=== PATIENT | female | born 1950 | race Caucasian/White ===

== ENCOUNTER 2020-02-05 11:23 | Emergency (ER) | payer MEDICARE, BC ==
--- NOTE | 2020-02-05 11:47 | EDM.PDOC ---
ED HPI GENERAL MEDICAL PROBLEM - General Chief Complaint: Syncope Stated Complaint: HEART ISSUES Time Seen by Provider: 02/05/20 11:35 Source of Information: Reports: Patient, EMS, Old Records History Limitations: Reports: No Limitations - History of Present Illness INITIAL COMMENTS - FREE TEXT/NARRATIVE: 69 yo female is here after a syncopal spell at home that occurred while standing in her laundry room. She has been feeling like she might pass out often for about a month associated always with standing. Normally she can quick sit or lie down and feel better. Today there was no where to sit and she passed out. Feels fine now. Arrives via EMS. No recent black or bloody stools, vomiting or diarrhea. No fever or chest pain. No injury from her fall today. EMS noted a low BP when they first arrived on scene. Patient had her diuretic dose increased somewhat recently, and it is being dropped back from 40 mg to 20 mg daily starting today. Onset: Today Onset Date: 02/05/20 Duration: Minutes:, Resolved Prior to Arrival Location: Reports: Generalized Quality: Reports: Other (no pain) Severity: Moderate Improves with: Reports: Other (lying/sitting) Worsens with: Reports: Other (standing) Context: Reports: Other (See HPI) Associated Symptoms: Reports: Syncope Treatments IN STORE REPRESENTATIVE: Reports: Other (see below) (none) - Related Data Allergies Allergy/AdvReac Type Severity Reaction Status Date / Time cephalexin [Cephalexin] Allergy Cannot Verified 02/05/20 11:26 Remember Cephalosporins Allergy Cannot Verified 02/05/20 11:26 Remember Corticosteroids Allergy Cannot Verified 02/05/20 11:26 (Glucocorticoids) Remember paclitaxel Allergy Cannot Verified 02/05/20 11:26 Remember Home Meds: Home Meds *[place] 3-6-9 1 tab PO DAILY 08/07/13 [History] *Vitamin B-12 2,000 mcg PO DAILY 08/07/13 [History] *Vitamin D3 2,000 units PO DAILY 08/07/13 [History] *Women's Multivitamin 1 tab PO DAILY 08/07/13 [History] Furosemide [Lasix] 20 mg PO DAILY 08/07/13 [History] Lisinopril 5 mg PO DAILY 08/07/13 [History] Metoprolol Tartrate 50 mg PO BID 08/07/13 [History] Simvastatin [Zocor] 5 mg PO BEDTIME 08/07/13 [History] Insulin Aspart [NovoLOG] 0 unit SUBCUT ASDIRECTED 08/13/15 [History] Nortriptyline 50 mg PO DAILY 02/05/20 [History] Past Medical History Cardiovascular History: Reports: CAD, [place], Stents Respiratory History: Reports: Other (See Below) Other Respiratory History: had reaction to chem on had dyspnea Gastrointestinal History: Reports: None Genitourinary History: Reports: None 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: Psychiatric History: Reports: Depression Endocrine/Metabolic History: Reports: Diabetes, Type II Type of Insulin Used in Pump: novolog Who Manages Your Pump: Patient (Self) Who Medically Manages Your Pump (Provider): Gisell Nielson Oncologic (Cancer) History: Reports: Breast, Colon - Infectious Disease History Infectious Disease History: Reports: Chicken Pox, Measles - Past Surgical History HEENT Surgical History: Reports: Eye Surgery, Other (See Below) Other HEENT Surgeries/Procedures: nasal polypectomy Cardiovascular Surgical History: Reports: Coronary Artery Stent GI Surgical History: Reports: Appendectomy, Cholecystectomy, Colon Female Surgical History: Reports: Hysterectomy Oncologic Surgical History: Reports: Mastectomy Social & Family History - Tobacco Use Smoking Status *Q: Never Smoker - Recreational Drug Use Recreational Drug Use: No - Living Situation & Occupation Living situation: Reports: , with Spouse ED ROS GENERAL - Review of Systems Review Of Systems: See Below Constitutional: Reports: No Symptoms HEENT: Reports: No Symptoms Respiratory: Reports: No Symptoms Cardiovascular: Reports: Syncope Endocrine: Reports: No Symptoms GI/Abdominal: Reports: Decreased Appetite : Reports: No Symptoms Musculoskeletal: Reports: No Symptoms Skin: Reports: No Symptoms Neurological: Reports: No Symptoms Psychiatric: Reports: No Symptoms - Physical Exam Exam: See Below Exam Limited By: No Limitations General Appearance: Alert, WD/WN, No Apparent Distress Eye Exam: Bilateral Eye: Normal Inspection, PERRL Ears: Normal External Exam, Normal Canal, Hearing Grossly Normal Nose: Normal Inspection, No Blood Throat/Mouth: Normal Inspection, Normal Lips, Normal Oropharynx, Normal Voice, No Airway Compromise, Other (dry oral mucosa) Head Exam: Atraumatic, Normocephalic Neck: Normal Inspection Respiratory/Chest: No Respiratory Distress, Lungs Clear, Normal Breath Sounds, No Accessory Muscle Use Cardiovascular: Regular Rate, Rhythm. No: No Edema GI/Abdominal: Normal Bowel Sounds, Soft, Non-Tender, No Distention Neuro Exam (Abbreviated): Alert, Oriented, CN II-XII Intact, Normal Cognition, No Motor/Sensory Deficits Back Exam: Normal Inspection. No: CVA Tenderness (R), CVA Tenderness (L) Extremities: Normal Inspection, Normal Range of Motion, Non-Tender, Pedal Edema (Trace pitting edema of both shins/ankles). No: No Pedal Edema Psychiatric: Normal Affect, Normal Mood Skin Exam: Warm, Dry, Intact, Normal Color, No Rash Course - Vital Signs Last Recorded V/S: Last Vital Signs Temp 36.6 C 02/05/20 11:36 Pulse 77 02/05/20 12:30 Resp 14 02/05/20 15:30 BP 128/61 02/05/20 15:30 Pulse Ox 99 02/05/20 15:30 Orthostatic Blood Pressure [ 81/43 Standing] Orthostatic Blood Pressure [ 129/63 Supine] Orthostatic Blood Pressure [ 109/55 Sitting] - Orders/Labs/Meds Orders: Active Orders 24 hr Category Date Time Status Cardiac Monitoring [RC] .As Directed Care 02/05/20 11:27 Active Orthostatic Vital Signs [RC] ASDIRECTED Care 02/05/20 11:27 Active Orthostatic Vital Signs [RC] ASDIRECTED Care 02/05/20 14:33 Active CULTURE URINE [RM] Stat Lab 02/05/20 12:35 Received Hemoccult [OCCULT BLOOD DIAGNOSTIC] [OP] Stat Lab 02/05/20 11:59 Ordered Labs: Laboratory Tests 02/05/20 02/05/20 02/05/20 Range/Units 11:37 11:37 12:07 WBC 4.5 (4.5-11.0) K/uL RBC 3.29 L (3.30-5.50) M/uL Hgb 10.5 L (12.0-15.0) g/dL Hct 32.2 L (36.0-48.0) % MCV 98 (80-98) fL MCH 32 H (27-31) pg MCHC 33 (32-36) % Plt Count 114 L (150-400) K/uL Sodium 138 L (140-148) mmol/L Potassium 4.0 (3.6-5.2) mmol/L Chloride 100 (100-108) mmol/L Carbon Dioxide 30 (21-32) mmol/L Anion Gap 12.0 (5.0-14.0) mmol/L BUN 26 H (7-18) mg/dL Creatinine 2.0 H (0.6-1.0) mg/dL Est Cr Clr Drug Dosing 23.22 mL/min Estimated GFR (MDRD) 25 L (>60) Glucose 259 H (74-106) mg/dL Calcium 9.7 (8.5-10.1) mg/dL Troponin I < 0.017 (0.000-0.056) ng/mL Urine Color Yellow (YELLOW) Urine Appearance Slightly cloudy A (CLEAR) Urine pH 6.0 (5.0-8.0) Ur Specific [place] 1.020 (1.008-1.030) Urine Protein Negative (NEGATIVE) mg/dL Urine Glucose (UA) 500 H (NEGATIVE) mg/dL Urine Ketones Negative (NEGATIVE) mg/dL Urine Occult Blood Negative (NEGATIVE) Urine Nitrite Negative (NEGATIVE) Urine Bilirubin Negative (NEGATIVE) Urine Urobilinogen 0.2 (0.2-1.0) EU/dL Ur Leukocyte Esterase Small H (NEGATIVE) Urine RBC 0-5 (0-5) Urine WBC 10-20 H (0-5) Ur Epithelial Cells Moderate Amorphous Sediment Moderate Urine Bacteria Moderate Urine Mucus Few Meds: Medications Discontinued Medications Generic Name Dose Route Start Last Admin Trade Name Freq PRN Reason Stop Dose Admin Sodium Chloride 1,000 mls @ 1,000 mls/hr 02/05/20 12:06 02/05/20 12:14 Normal Saline IV 02/05/20 13:05 1,000 mls/hr .BOLUS ONE Administration Sodium Chloride 1,000 mls @ 1,000 mls/hr 02/05/20 14:57 02/05/20 14:59 Normal Saline IV 02/05/20 15:56 1,000 mls/hr .BOLUS ONE Administration - Re-Assessments/Exams Free Text/Narrative Re-Assessment/Exam: 02/05/20 15:21 Is still orthostatic after a liter of NS, will give an additional liter. Departure - Departure Time of Disposition: 16:24 Disposition: Home, Self-Care 01 Condition: Fair Clinical Impression: Orthostatic hypotension - Discharge Information *PRESCRIPTION DRUG MONITORING PROGRAM REVIEWED*: Not Applicable *COPY OF PRESCRIPTION DRUG MONITORING REPORT IN PATIENT LEIGHA: Not Applicable Instructions: Orthostatic Hypotension Referrals: PCP,None [Primary Care Provider] - Forms: ED Department Discharge Additional Instructions: If you start to feel light-headed, sit or lie down immediately. See your doctor for recheck of your BP sotero. Return as needed. Get up from sitting to a standing slowly. Consider wearing support stockings to prevent your BP from dropping when you stand up. Sepsis Event Note (ED) - Evaluation Sepsis Screening Result: No Definite Risk - Focused Exam Vital Signs: Vital Signs Temp Pulse Resp BP Pulse Ox 02/05/20 15:30 14 128/61 99 02/05/20 14:33 12 124/62 99 02/05/20 13:36 15 131/63 98 02/05/20 12:30 77 16 121/59 L 99 02/05/20 11:36 36.6 C 75 12 115/49 L 100 02/05/20 11:25 36.7 C 78 16 115/49 L 99 - My Orders Last 24 Hours: My Active Orders 02/05/20 11:27 Cardiac Monitoring [RC] .As Directed Orthostatic Vital Signs [RC] ASDIRECTED 02/05/20 11:59 Hemoccult [OCCULT BLOOD DIAGNOSTIC] [OP] Stat 02/05/20 12:35 CULTURE URINE [RM] Stat 02/05/20 14:33 Orthostatic Vital Signs [RC] ASDIRECTED - Assessment/Plan Last 24 Hours: My Active Orders 02/05/20 11:27 Cardiac Monitoring [RC] .As Directed Orthostatic Vital Signs [RC] ASDIRECTED 02/05/20 11:59 Hemoccult [OCCULT BLOOD DIAGNOSTIC] [OP] Stat 02/05/20 12:35 CULTURE URINE [RM] Stat 02/05/20 14:33 Orthostatic Vital Signs [RC] ASDIRECTED
[2020-02-05] MEDS ORDERED: Sodium Chloride 0.9% 1,000 ML IV ONE ×2 (12:06→14:57)
[2020-02-05 13:33] VITALS: PULSE 77
[2020-02-05 16:27] VITALS: BP 121/58
== END 2020-02-05 17:10 | disposition home or self-care (01) ==
LOC: JP.ED 11:23
DX: I95.1 Orthostatic hypotension (principal); F32.9 Major depressive disorder, single episode, unspecified; E11.9 Type 2 diabetes mellitus without complications; Z79.4 Long term (current) use of insulin; Z88.1 Allergy status to other antibiotic agents; Z88.8 Allergy status to other drugs, medicaments and biological substances; Z79.899 Other long term (current) drug therapy
CPT/HCPCS: 36415; 80048; 81001; 84484; 85027; 87086; 87088; 87186; 96360; 96361; 99284; J7030

== ENCOUNTER 2021-02-16 11:45 | Inpatient (IN) | payer MEDICARE, BC ==
[2021-02-16] MEDS ORDERED: Sodium Chloride 0.9% 1,000 ML IV SCH (13:00)
--- NOTE | 2021-02-16 13:17 | EDM.PDOC ---
ED HPI GENERAL MEDICAL PROBLEM - General Chief Complaint: General Stated Complaint: WEAKNESS Time Seen by Provider: 02/16/21 12:35 Source of Information: Reports: Patient, Family History Limitations: Reports: No Limitations - History of Present Illness INITIAL COMMENTS - FREE TEXT/NARRATIVE: 70-year-old female who has been developing progressive weakness, shortness of breath and chest pressure with activity at times, and now has had dark stools and abdominal pain for the past 12 hours. No fevers or chills. She has a history of colon cancer but had a partial colectomy and her follow-up screenings were negative. She does not have a history of dark stools in the past. She apparently talked to her primary provider earlier this month, the chest pressure was measured and she was instructed to rest until it goes away. No cough. She is also developed some slight increase in her chronic lower extremity edema. The main reason she is here however is the abdominal pain and dark stools. Onset: Sudden (Dark stools and abdominal pain is developed in the past 12 hours, shortness of breath and intermittent chest pain for 2 months) Location: Reports: Abdomen Associated Symptoms: Reports: Chest Pain, Malaise, Shortness of Breath (Especially with activity), Weakness. Denies: Fever/Chills, Nausea/Vomiting Abdomen Pain Score (Numeric/FACES): 6 - Related Data Allergies Allergy/AdvReac Type Severity Reaction Status Date / Time cephalexin [Cephalexin] Allergy Cannot Verified 02/16/21 12:26 Remember Cephalosporins Allergy Cannot Verified 02/16/21 12:26 Remember Corticosteroids Allergy Cannot Verified 02/16/21 12:26 (Glucocorticoids) Remember paclitaxel Allergy Cannot Verified 02/16/21 12:26 Remember Home Meds: Home Meds *[place] 3-6-9 1 tab PO DAILY 08/07/13 [History] *Vitamin B-12 2,000 mcg PO DAILY 08/07/13 [History] *Vitamin D3 2,000 units PO DAILY 08/07/13 [History] *Women's Multivitamin 1 tab PO DAILY 08/07/13 [History] Furosemide [Lasix] 20 mg PO DAILY 08/07/13 [History] Lisinopril 5 mg PO DAILY 08/07/13 [History] Metoprolol Tartrate 25 mg PO BID 08/07/13 [History] Simvastatin [Zocor] 5 mg PO BEDTIME 08/07/13 [History] Insulin Aspart [NovoLOG] 0 unit SUBCUT ASDIRECTED 08/13/15 [History] Aspirin [Halfprin] 81 mg PO DAILY 02/16/21 [History] Nitroglycerin [Nitrostat] 0.4 mg SL ASDIRECTED PRN 02/16/21 [History] Past Medical History Cardiovascular History: Reports: CAD, [place], Stents Respiratory History: Reports: Other (See Below) Other Respiratory History: had reaction to chem on had dyspnea Gastrointestinal History: Reports: None Genitourinary History: Reports: None 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: Psychiatric History: Reports: Depression Endocrine/Metabolic History: Reports: Diabetes, Type II Oncologic (Cancer) History: Reports: Breast, Colon - Infectious Disease History Infectious Disease History: Reports: Chicken Pox, Measles - Past Surgical History HEENT Surgical History: Reports: Eye Surgery, Other (See Below) Other HEENT Surgeries/Procedures: nasal polypectomy Cardiovascular Surgical History: Reports: Coronary Artery Stent GI Surgical History: Reports: Appendectomy, Cholecystectomy, Colon Female Surgical History: Reports: Hysterectomy Oncologic Surgical History: Reports: Mastectomy Social & Family History - Tobacco Use Tobacco Use Status *Q: Never Tobacco User - Recreational Drug Use Recreational Drug Use: No - Living Situation & Occupation Living situation: Reports: , with Spouse ED ROS GENERAL - Review of Systems Review Of Systems: See Below Constitutional: Reports: Malaise, Decreased Appetite. Denies: Fever, Chills HEENT: Reports: No Symptoms Respiratory: Reports: Shortness of Breath Cardiovascular: Reports: Chest Pain (Pressure with activity). Denies: Palpitations GI/Abdominal: Reports: Abdominal Pain, Diarrhea (Patient had 3 or 4 episodes of loose stools yesterday prior to the dark stools), Melena Skin: Reports: Bruising (Bruises easily) Neurological: Reports: Weakness. Denies: Headache Psychiatric: Reports: No Symptoms ED EXAM, GENERAL - Physical Exam Exam: See Below Exam Limited By: No Limitations General Appearance: Alert, No Apparent Distress, Anxious Eye Exam: Bilateral Eye: Normal Inspection (Other than moderate pale conjunctiva) Respiratory/Chest: No Respiratory Distress, Lungs Clear Cardiovascular: Regular Rate, Rhythm, Systolic Murmur (2/6). No: Tachycardia GI/Abdominal: Soft, Tender (Very tender to palpation especially in the central abdomen into the left lower quadrant), Abnormal Bowel Sounds (All sounds are hypoactive) Rectal (Female) Exam: Black Stool, Heme + Stool Extremities: Pedal Edema (Ankle and lower extremity edema bilaterally, slightly worse on the right) Neurological: Alert, Oriented Psychiatric: Depressed Mood, Flat Affect Skin Exam: Warm, Dry, Pallor Course - Vital Signs Last Recorded V/S: Last Vital Signs Temp 98.1 F 02/16/21 17:46 Pulse 100 02/16/21 17:46 Resp 20 02/16/21 17:46 BP 124/58 L 02/16/21 17:46 Pulse Ox 98 02/16/21 17:46 - Orders/Labs/Meds Orders: Active Orders 24 hr Category Date Time Status Sodium Chloride 0.9% [Normal Saline] 1,000 ml Med 02/16/21 13:00 Active IV ASDIRECTED Transfuse Red Blood Cells [COMM] Stat Oth 02/16/21 13:33 Ordered Medication Orders Acetaminophen (Acetaminophen 325 Mg Tab) 650 mg PO Q4H PRN PRN Reason: Pain (Mild 1-3)/fever Albuterol (Albuterol 0.083% 2.5 Mg/3 Ml Neb Soln) 2.5 mg NEB Q4H PRN PRN Reason: Shortness Of Breath/wheezing Aspirin (Aspirin 81 Mg Tab.Ec) 81 mg PO DAILY YOVANY Sodium Chloride (Normal Saline) 1,000 mls @ 200 mls/hr IV ASDIRECTED YOVANY Last Admin: 02/16/21 13:26 Dose: 200 mls/hr Documented by: CALEB Sodium Chloride (Normal Saline) 1,000 mls @ 125 mls/hr IV ASDIRECTED [facility] Lorazepam (Lorazepam 2 Mg/Ml Sdv) 0.5 mg IVPUSH Q4H PRN PRN Reason: Nausea/Vomiting Magnesium Hydroxide (Magnesium Hydroxide 400 Mg/5 Ml Susp 30 Ml Cup) 30 ml PO Q12H PRN PRN Reason: Constipation Melatonin (Melatonin 3 Mg Tab) 9 mg PO BEDTIME PRN PRN Reason: Sleep Metoprolol Tartrate (Metoprolol Tartrate 25 Mg Tab) 25 mg PO BID [facility] Morphine Sulfate (Morphine 2 Mg/Ml Syringe) 2 mg IVPUSH Q2H PRN PRN Reason: Pain (severe 7-10) Ondansetron HCl (Ondansetron 4 Mg/2 Ml Sdv) 4 mg IV Q6H PRN PRN Reason: Nausea/Vomiting Ondansetron HCl (Ondansetron 4 Mg Tab.Dis) 4 mg PO Q6H PRN PRN Reason: Nausea able to take PO Oxycodone HCl (Oxycodone 5 Mg Tab) 5 - 10 mg PO Q4H PRN PRN Reason: Pain Pantoprazole Sodium (Pantoprazole 40 Mg Vial) 40 mg IV Q12H YOVANY Senna/Docusate Sodium (Docusate Sodium/Sennosides 50-8.6 Mg Tab) 1 tab PO BID PRN PRN Reason: Constipation Labs: Laboratory Tests 02/16/21 02/16/21 02/16/21 Range/Units 13:04 13:04 13:04 WBC 5.3 (4.5-11.0) K/uL RBC 2.25 L (3.30-5.50) M/uL Hgb 7.4 L D (12.0-15.0) g/dL Hct 22.2 L (36.0-48.0) % MCV 99 H (80-98) fL MCH 33 H (27-31) pg MCHC 33 (32-36) % Plt Count 115 L (150-400) K/uL Neut % (Auto) 72.5 H (36-66) % Lymph % (Auto) 18.8 L (24-44) % [place] % (Auto) 6.4 H (2-6) % Eos % (Auto) 1.5 L (2-4) % Baso % (Auto) 0.8 (0-1) % D-Dimer, Quantitative (0.0-500.0) ng/mL Sodium 140 (140-148) mmol/L Potassium 5.4 H (3.6-5.2) mmol/L Chloride 106 (100-108) mmol/L Carbon Dioxide 25 (21-32) mmol/L Anion Gap 14.4 H (5.0-14.0) mmol/L BUN 51 H D (7-18) mg/dL Creatinine 1.6 H (0.6-1.0) mg/dL Est Cr Clr Drug Dosing 28.60 mL/min Estimated GFR (MDRD) 32 L (>60) Glucose 285 H (74-106) mg/dL Lactic Acid 2.8 H (0.4-2.0) mmol/L Calcium 8.7 (8.5-10.1) mg/dL Total Bilirubin 0.8 D (0.2-1.0) mg/dL AST 18 (15-37) U/L ALT 21 (12-78) U/L Alkaline Phosphatase 59 (46-116) U/L Troponin I < 0.017 (0.000-0.056) ng/mL Total Protein 6.1 L (6.4-8.2) g/dL Albumin 2.5 L (3.4-5.0) g/dL Globulin 3.6 H (2.3-3.5) g/dL Albumin/Globulin Ratio 0.7 L (1.2-2.2) Lipase 43 L (73-393) U/L Blood Type Gel Antibody Screen Crossmatch 02/16/21 02/16/21 Range/Units 13:04 13:12 WBC (4.5-11.0) K/uL RBC (3.30-5.50) M/uL Hgb (12.0-15.0) g/dL Hct (36.0-48.0) % MCV (80-98) fL MCH (27-31) pg MCHC (32-36) % Plt Count (150-400) K/uL Neut % (Auto) (36-66) % Lymph % (Auto) (24-44) % [place] % (Auto) (2-6) % Eos % (Auto) (2-4) % Baso % (Auto) (0-1) % D-Dimer, Quantitative 812.81 H (0.0-500.0) ng/mL Sodium (140-148) mmol/L Potassium (3.6-5.2) mmol/L Chloride (100-108) mmol/L Carbon Dioxide (21-32) mmol/L Anion Gap (5.0-14.0) mmol/L BUN (7-18) mg/dL Creatinine (0.6-1.0) mg/dL Est Cr Clr Drug Dosing mL/min Estimated GFR (MDRD) (>60) Glucose (74-106) mg/dL Lactic Acid (0.4-2.0) mmol/L Calcium (8.5-10.1) mg/dL Total Bilirubin (0.2-1.0) mg/dL AST (15-37) U/L ALT (12-78) U/L Alkaline Phosphatase (46-116) U/L Troponin I (0.000-0.056) ng/mL Total Protein (6.4-8.2) g/dL Albumin (3.4-5.0) g/dL Globulin (2.3-3.5) g/dL Albumin/Globulin Ratio (1.2-2.2) Lipase (73-393) U/L Blood Type A POSITIVE Gel Antibody Screen Negative Crossmatch See Detail Meds: Medications Generic Name Dose Route Start Last Admin Trade Name Freq PRN Reason Stop Dose Admin Acetaminophen 650 mg 02/16/21 14:30 Acetaminophen 325 Mg Tab PO Q4H PRN Pain (Mild 1-3)/fever Albuterol 2.5 mg 02/16/21 14:30 Albuterol 0.083% 2.5 Mg/3 Ml Neb Soln NEB Q4H PRN Shortness Of Breath/wheezing Aspirin 81 mg 02/17/21 09:00 Aspirin 81 Mg Tab.Ec PO DAILY YOVANY Sodium Chloride 1,000 mls @ 200 mls/hr 02/16/21 13:00 02/16/21 13:26 Normal Saline IV 200 mls/hr ASDIRECTED YOVANY Administration Sodium Chloride 1,000 mls @ 125 mls/hr 02/16/21 14:30 Normal Saline IV ASDIRECTED YOVANY Lorazepam 0.5 mg 02/16/21 14:30 Lorazepam 2 Mg/Ml Sdv IVPUSH Q4H PRN Nausea/Vomiting Magnesium Hydroxide 30 ml 02/16/21 14:30 Magnesium Hydroxide 400 Mg/5 Ml Susp 30 Ml Cup PO Q12H PRN Constipation Melatonin 9 mg 02/16/21 14:30 Melatonin 3 Mg Tab PO BEDTIME PRN Sleep Metoprolol Tartrate 25 mg 02/16/21 21:00 Metoprolol Tartrate 25 Mg Tab PO BID YOVANY Morphine Sulfate 2 mg 02/16/21 14:30 Morphine 2 Mg/Ml Syringe IVPUSH Q2H PRN Pain (severe 7-10) Ondansetron HCl 4 mg 02/16/21 14:30 Ondansetron 4 Mg/2 Ml Sdv IV Q6H PRN Nausea/Vomiting Ondansetron HCl 4 mg 02/16/21 14:30 Ondansetron 4 Mg Tab.Dis PO Q6H PRN Nausea able to take PO Oxycodone HCl 5 - 10 mg 02/16/21 14:30 Oxycodone 5 Mg Tab PO Q4H PRN Pain Pantoprazole Sodium 40 mg 02/17/21 03:00 Pantoprazole 40 Mg Vial IV Q12H YOVANY Senna/Docusate Sodium 1 tab 02/16/21 14:30 Docusate Sodium/Sennosides 50-8.6 Mg Tab PO BID PRN Constipation Discontinued Medications Generic Name Dose Route Start Last Admin Trade Name Freq PRN Reason Stop Dose Admin Pantoprazole Sodium 80 mg 02/16/21 14:15 Pantoprazole 40 Mg Vial IVPUSH .BOLUS YOVANY Pantoprazole Sodium 80 mg 02/16/21 15:00 02/16/21 14:54 Pantoprazole 40 Mg Vial IVPUSH 02/16/21 15:01 80 mg .BOLUS ONE Administration Propofol Confirm 02/16/21 15:21 Propofol 200 Mg/20 Ml Sdv Administered 02/16/21 15:22 Dose 200 mg [address] [facility] ONE - Re-Assessments/Exams Free Text/Narrative Re-Assessment/Exam: 02/16/21 13:16 CBC, CMP, 1 view chest x-ray, stool guaiac, lipase and troponin were obtained. 02/16/21 13:40 Stool was obviously guaiac positive, hemoglobin returned only 7.4. Blood was then typed and screened and 1 unit of packed RBCs ordered for infusion. Dr. Laura of the hospitalist service was consulted to see the patient to consider admission and treatment along with further evaluation for GI bleed with blood loss anemia, abdominal and chest pain and weakness. CMP, lipase, troponin are still pending along with D-dimer. Chest x-ray looked basically clear, no evidence of significant infiltrate or congestive heart failure. Departure - Departure Time of Disposition: 14:18 Disposition: Admitted As Inpatient 64 Clinical Impression: Blood loss anemia GI (gastrointestinal bleed) Qualifiers: GI bleed type/associated pathology: melena Qualified Code(s): K92.1 - Melena Abdominal pain Qualifiers: Abdominal location: generalized Qualified Code(s): R10.84 - Generalized abdominal pain - Discharge Information Sepsis Event Note (ED) - Evaluation Sepsis Screening Result: No Definite Risk - Focused Exam Vital Signs: Vital Signs Temp Pulse Resp BP Pulse Ox 02/16/21 12:43 94 124/43 L 99 02/16/21 12:31 97.8 F 88 16 109/38 L 100 02/16/21 12:29 97.8 F 88 16 109/38 L 100 02/16/21 12:15 88 116/37 L 99 - My Orders Last 24 Hours: My Active Orders 02/16/21 13:00 Sodium Chloride 0.9% [Normal Saline] 1,000 ml IV ASDIRECTED 02/16/21 13:33 Transfuse Red Blood Cells [COMM] Stat - Assessment/Plan Last 24 Hours: My Active Orders 02/16/21 13:00 Sodium Chloride 0.9% [Normal Saline] 1,000 ml IV ASDIRECTED 02/16/21 13:33 Transfuse Red Blood Cells [COMM] Stat
--- NOTE | 2021-02-16 13:58 | CR ---
CHEST: Portable 02/16/2021 and 1:23 PM CLINICAL HISTORY:SOB, chest pain COMPARISON:2016 FINDINGS: The heart size, pulmonary vascularity and hilar structures are normal. No infiltrate effusion or pneumothorax is seen. IMPRESSION: No acute cardiopulmonary process.
[2021-02-16] MEDS ORDERED: Pantoprazole 40 MG Vial IVPUSH SCH (14:15)
--- NOTE | 2021-02-16 14:29 | PCM.HP.2 ---
H&P History of Present Illness - General Date of Service: 02/16/21 Admit Problem/Dx: Admission Diagnosis/Problem Admission Diagnosis/Problem Acute upper gastrointestinal hemorrhage Source of Information: Patient, Family, Provider History Limitations: Reports: No Limitations - History of Present Illness Initial Comments - Free Text/Narative: CC: it hurts here (points to upper abdomen) HPI: Yudelka presents to the emergency room today after having 3 large black, tarry bowel movements this morning. She reports some associated crampy upper abdominal pain around the time of the bowel movements. The pain was severe enough to take her breath away. The pain did not radiate from the upper part of the abdomen. She did not take anything to make the pain better but it did go away after the third bowel movement. She has noticed an increase in heartburn lately but has not had any nausea or vomiting. No appetite for the past couple of days. No fevers. No change in bowel habits before today. She does report intermittent exertional chest tightness over the past month or so. He does not seem to be getting any worse as far as more frequent or more severe but has not been getting any better. She is able to perform most of her activities of daily living but has to stop to rest occasionally. Diabetes has been well controlled. No sick contacts. She does report of lot of stress. She does not use nonsteroidal anti-inflammatory drugs. Work-up in the emergency room revealed a hemoglobin of 7.4 with a baseline of around 11. There is concern for an upper GI bleed. She will be receiving 1 unit of blood via transfusion. She is receiving IV pantoprazole. She will be admitted to the intensive care unit for further management. Abdomen Pain Score (Numeric/FACES): 6 - Related Data Allergies/Adverse Reactions: Allergies Allergy/AdvReac Type Severity Reaction Status Date / Time cephalexin [Cephalexin] Allergy Cannot Verified 02/16/21 12:26 Remember Cephalosporins Allergy Cannot Verified 02/16/21 12:26 Remember Corticosteroids Allergy Cannot Verified 02/16/21 12:26 (Glucocorticoids) Remember paclitaxel Allergy Cannot Verified 02/16/21 12:26 Remember Home Medications: Home Meds *[place] 3-6-9 1 tab PO DAILY 08/07/13 [History] *Vitamin B-12 2,000 mcg PO DAILY 08/07/13 [History] *Vitamin D3 2,000 units PO DAILY 08/07/13 [History] *Women's Multivitamin 1 tab PO DAILY 08/07/13 [History] Furosemide [Lasix] 20 mg PO DAILY 08/07/13 [History] Lisinopril 5 mg PO DAILY 08/07/13 [History] Metoprolol Tartrate 25 mg PO BID 08/07/13 [History] Simvastatin [Zocor] 5 mg PO BEDTIME 08/07/13 [History] Insulin Aspart [NovoLOG] 0 unit SUBCUT ASDIRECTED 08/13/15 [History] Aspirin [Halfprin] 81 mg PO DAILY 02/16/21 [History] Nitroglycerin [Nitrostat] 0.4 mg SL ASDIRECTED PRN 02/16/21 [History] Past Medical History Cardiovascular History: Reports: CAD, MT, Stents Respiratory History: Reports: Other (See Below) Other Respiratory History: had reaction to chem on had dyspnea Gastrointestinal History: Reports: None Genitourinary History: Reports: None [employer] History: Reports: Psychiatric History: Reports: Depression Endocrine/Metabolic History: Reports: Diabetes, Type II Oncologic (Cancer) History: Reports: Breast, Colon - Infectious Disease History Infectious Disease History: Reports: Chicken Pox, Measles - Past Surgical History HEENT Surgical History: Reports: Eye Surgery, Other (See Below) Other HEENT Surgeries/Procedures: nasal polypectomy Cardiovascular Surgical History: Reports: Coronary Artery Stent GI Surgical History: Reports: Appendectomy, Cholecystectomy, Colon Female Surgical History: Reports: Hysterectomy Oncologic Surgical History: Reports: Mastectomy Social & Family History - Family History Cardiac: Reports: CAD - Tobacco Use Tobacco Use Status *Q: Never Tobacco User - Alcohol Use Alcohol Use History: No - Recreational Drug Use Recreational Drug Use: No - Living Situation & Occupation Living situation: Reports: , with Spouse H&P Review of Systems - Review of Systems: Review Of Systems: See Below Free Text/Narrative: A complete 12 point review of systems was obtained. Pertinent positives and negatives are noted in the history of present illness. All other systems were reviewed and were negative except as noted. Exam - Exam Exam: See Below - Vital Signs Vital Signs: Last Vital Signs Temp 36.6 C 02/16/21 12:31 Pulse 94 02/16/21 12:43 Resp 16 02/16/21 12:31 BP 124/43 L 02/16/21 12:43 Pulse Ox 99 02/16/21 12:43 Weight: 98.883 kg - Exam Quality Assessment: No: Supplemental Oxygen General: Alert, Oriented, Cooperative. No: Mild Distress HEENT: Conjunctiva Clear. No: Mucosa Moist & [place] (dry), Scleral Icterus Neck: Supple, Trachea Midline Lungs: Clear to Auscultation, Normal Respiratory Effort Cardiovascular: Regular Rate, Regular Rhythm, Systolic Murmur GI/Abdominal Exam: Normal Bowel Sounds, Soft, No Distention, Tender (mild epigastric ) Extremities: Pedal Edema (mild bilateral ankle edema ). No: Increased Warmth Peripheral Pulses: 1+: Dorsalis Pedis (L), Dorsalis Pedis (R) Skin: Warm, Dry Neuro Extensive - Mental Status: Alert, Oriented x3, Nl Response to Commands Neuro Extensive - Motor, Sensory, Reflexes: No: Dysarthria, Abnormal Motor, Tremor Psychiatric: Alert, Normal Affect - Patient Data Lab Results Last 24 hrs: Laboratory Results - last 24 hr 02/16/21 02/16/21 02/16/21 Range/Units 13:04 13:04 13:04 WBC 5.3 (4.5-11.0) K/uL RBC 2.25 L (3.30-5.50) M/uL Hgb 7.4 L D (12.0-15.0) g/dL Hct 22.2 L (36.0-48.0) % MCV 99 H (80-98) fL MCH 33 H (27-31) pg MCHC 33 (32-36) % Plt Count 115 L (150-400) K/uL Neut % (Auto) 72.5 H (36-66) % Lymph % (Auto) 18.8 L (24-44) % Graham % (Auto) 6.4 H (2-6) % Eos % (Auto) 1.5 L (2-4) % Baso % (Auto) 0.8 (0-1) % D-Dimer, Quantitative (0.0-500.0) ng/mL Sodium 140 (140-148) mmol/L Potassium 5.4 H (3.6-5.2) mmol/L Chloride 106 (100-108) mmol/L Carbon Dioxide 25 (21-32) mmol/L Anion Gap 14.4 H (5.0-14.0) mmol/L BUN 51 H D (7-18) mg/dL Creatinine 1.6 H (0.6-1.0) mg/dL Est Cr Clr Drug Dosing 28.60 mL/min Estimated GFR (MDRD) 32 L (>60) Glucose 285 H (74-106) mg/dL Lactic Acid 2.8 H (0.4-2.0) mmol/L Calcium 8.7 (8.5-10.1) mg/dL Total Bilirubin 0.8 D (0.2-1.0) mg/dL AST 18 (15-37) U/L ALT 21 (12-78) U/L Alkaline Phosphatase 59 (46-116) U/L Troponin I < 0.017 (0.000-0.056) ng/mL Total Protein 6.1 L (6.4-8.2) g/dL Albumin 2.5 L (3.4-5.0) g/dL Globulin 3.6 H (2.3-3.5) g/dL Albumin/Globulin Ratio 0.7 L (1.2-2.2) Lipase 43 L (73-393) U/L Blood Type Gel Antibody Screen 02/16/21 02/16/21 Range/Units 13:04 13:12 WBC (4.5-11.0) K/uL RBC (3.30-5.50) M/uL Hgb (12.0-15.0) g/dL Hct (36.0-48.0) % MCV (80-98) fL MCH (27-31) pg MCHC (32-36) % Plt Count (150-400) K/uL Neut % (Auto) (36-66) % Lymph % (Auto) (24-44) % Graham % (Auto) (2-6) % Eos % (Auto) (2-4) % Baso % (Auto) (0-1) % D-Dimer, Quantitative 812.81 H (0.0-500.0) ng/mL Sodium (140-148) mmol/L Potassium (3.6-5.2) mmol/L Chloride (100-108) mmol/L Carbon Dioxide (21-32) mmol/L Anion Gap (5.0-14.0) mmol/L BUN (7-18) mg/dL Creatinine (0.6-1.0) mg/dL Est Cr Clr Drug Dosing mL/min Estimated GFR (MDRD) (>60) Glucose (74-106) mg/dL Lactic Acid (0.4-2.0) mmol/L Calcium (8.5-10.1) mg/dL Total Bilirubin (0.2-1.0) mg/dL AST (15-37) U/L ALT (12-78) U/L Alkaline Phosphatase (46-116) U/L Troponin I (0.000-0.056) ng/mL Total Protein (6.4-8.2) g/dL Albumin (3.4-5.0) g/dL Globulin (2.3-3.5) g/dL Albumin/Globulin Ratio (1.2-2.2) Lipase (73-393) U/L Blood Type A POSITIVE Gel Antibody Screen Negative Result Diagrams: 02/16/21 13:04 02/16/21 13:04 Fede Results Last 24 hrs: Microbiology 02/16/21 12:59 Stool Occult Blood (FEDE) - Final Stool / Feces Imaging Impressions Last 24 hrs: Chest x-ray-image personally reviewed-lungs are clear with no mass, infiltrate or effusion. Heart size is normal. Sepsis Event Note - Evaluation Sepsis Screening Result: No Definite Risk - Focused Exam Vital Signs: Vital Signs Temp Pulse Resp BP Pulse Ox 02/16/21 12:43 94 124/43 L 99 02/16/21 12:31 36.6 C 88 16 109/38 L 100 02/16/21 12:29 36.6 C 88 16 109/38 L 100 02/16/21 12:15 88 116/37 L 99 *Q Meaningful Use (ADM) - VTE *Q VTE Pharmacological Contraindications *Q: Active Hemorrhage - VTE Risk Assess *Q Each Risk Factor Represents 1 Point: Swollen Legs, Current, Obesity ( BMI > 25 kg/m2) Total Score 1 Point Risk Factors: 2 Each Risk Factor Represents 2 Points: Age 60 - 74 Years, Malignancy (present or previous) Total Score 2 Point Risk Factors: 4 Each Risk Factor Represents 3 Points: None Total Score 3 Point Risk Factors: 0 Each Risk Factor Represents 5 Points: None Total Score 5 Point Risk Factors: 0 Venous Thromboembolism Risk Factor Score *Q: 6 - Problem List (1) Acute upper gastrointestinal hemorrhage SNOMED Code(s): 23753573 ICD Code: K92.2 - GASTROINTESTINAL HEMORRHAGE, UNSPECIFIED Status: Acute Current Visit: Yes (2) Anemia due to blood loss, acute SNOMED Code(s): 729686934 ICD Code: D62 - ACUTE POSTHEMORRHAGIC ANEMIA Status: Acute Current Visit: Yes (3) Hyperkalemia SNOMED Code(s): 95396742 ICD Code: E87.5 - HYPERKALEMIA Status: Acute Current Visit: Yes (4) Coronary artery disease SNOMED Code(s): 79982208 ICD Code: I25.10 - ATHSCL HEART DISEASE OF [place] CORONARY ARTERY W/O ANG PCTRS Status: Chronic Current Visit: Yes Qualifiers: Coronary Disease-Associated Artery/Lesion type: [place] artery [place] vs. transplanted heart: [place] heart Associated angina: with stable angina Qualified Code(s): I25.118 - Atherosclerotic heart disease of [place] coronary artery with other forms of angina pectoris (5) Insulin dependent diabetes mellitus SNOMED Code(s): 37165986 ICD Code: [id number] - Status: Chronic Current Visit: Yes Problem List Initiated/Reviewed/Updated: Yes Orders Last 24hrs: Active Orders 24 hr Category Date Time Status Patient Status Manage Transfer [TRANSFER] Routine ADT 02/16/21 14:15 Ordered Pantoprazole [ProTONIX IV] Med 02/16/21 14:15 Active 80 mg IVPUSH .BOLUS Sodium Chloride 0.9% [Normal Saline] 1,000 ml Med 02/16/21 13:00 Active IV ASDIRECTED Transfuse Red Blood Cells [COMM] Stat Oth 02/16/21 13:33 Ordered Resuscitation Status Routine Resus Stat 02/16/21 14:16 Ordered Medication Orders Sodium Chloride (Normal Saline) 1,000 mls @ 200 mls/hr IV ASDIRECTED YOVANY Last Admin: 02/16/21 13:26 Dose: 200 mls/hr Documented by: CALEB Pantoprazole Sodium (Pantoprazole 40 Mg Vial) 80 mg IVPUSH .BOLUS YOVANY Assessment/Plan Comment:: ASSESSMENT AND PLAN - Acute gastrointestinal hemorrhage-complicated by anemia due to blood loss. Hemoglobin has dropped 3-4 points from her baseline. Ulcer versus gastritis seem to be the most likely etiologies for her bleeding. No history of liver disease. Borderline tachycardia and blood pressure is in the normal range but on the low side. Lactic acid is elevated suggesting impaired perfusion. -Transfuse 1 unit of packed red blood cells -IV pantoprazole every 12 hours -Surgical consultation for EGD -IV fluids -Serial hemoglobin levels Hyperkalemia-mild. She is on an CAYETANO inhibitor. I would anticipate this will improve with some IV fluids and holding the CAYETANO inhibitor. -IV fluids overnight -Hold CAYETANO inhibitor -Recheck in the morning Coronary artery disease-she may have what sounds like stable angina. The chest discomfort she describes could be related to an ulcer as well. She would benefit from further testing once her bleeding has stopped and she is stable. -Continue medical management including aspirin, beta-xuan and statin -Stress test in 2 days Insulin-dependent diabetes mellitus-well controlled by history. She would like to continue using her insulin pump. -Patient may use her own insulin pump and glucose monitoring supplies Maintenance issues - -DVT prophylaxis-mechanical with active hemorrhage -GI prophylaxis-PPI as above -Nutrition-nothing by mouth until after the EGD -[place] catheter-not indicated CODE STATUS -full code Admission justification -this patient will be admitted for inpatient services and is medically appropriate meeting medical necessity for inpatient admission as outlined in my documentation. I reasonably expect the patient will require inpatient services that span a period time over 2 midnights. I reasonably expect this patient to be discharged or transferred within 96 hours [facility]. Disposition -I anticipate discharge home after the hospital stay Primary care physician - Dr Frances Laura M.D. - Mortality Measure Prognosis:: Good
[2021-02-16] MEDS ORDERED: LORazepam 2 MG/ML SDV IVPUSH PRN (14:30)
[2021-02-16] MEDS ORDERED: Ondansetron 4 MG Tab.DIS PO PRN (14:30)
[2021-02-16] MEDS ORDERED: Morphine 2 MG/ML SYRINGE IVPUSH PRN (14:30)
[2021-02-16] MEDS ORDERED: Albuterol 0.083% 2.5 MG/3 ML Neb Soln NEB PRN (14:30)
[2021-02-16] MEDS ORDERED: oxyCODONE 5 MG Tab PO PRN (14:30)
[2021-02-16] MEDS ORDERED: Magnesium Hydroxide 400 MG/5 ML Susp 30 ML Cup PO PRN (14:30)
[2021-02-16] MEDS ORDERED: Ondansetron 4 MG/2 ML SDV IV PRN (14:30)
[2021-02-16] MEDS ORDERED: Pantoprazole 40 MG Vial IVPUSH ONE (15:00)
[2021-02-16] MEDS ORDERED: Propofol 200 MG/20 ML SDV ONE (15:21)
[2021-02-16] MEDS: Sodium Chloride 0.9% 1,000 ML IV SCH (20:25)
[2021-02-16] MEDS: Metoprolol Tartrate 25 MG Tab PO SCH (20:28)
[2021-02-16] MEDS: Acetaminophen 325 MG Tab PO PRN (23:23)
[2021-02-17] MEDS ORDERED: Calcium Carbonate 500 MG Tab.Chew PO PRN (00:30)
[2021-02-17] MEDS: Melatonin 3 MG Tab PO PRN ×2 (00:41→21:28)
[2021-02-17] MEDS: Pantoprazole 40 MG Vial IV SCH ×2 (03:01→15:39)
[2021-02-17] MEDS: Sodium Chloride 0.9% 1,000 ML IV SCH (04:49)
--- NOTE | 2021-02-17 09:12 | PCM.PN ---
- General Info Date of Service: 02/17/21 Subjective Update: There were no acute events overnight. Patient had one small bowel movement with some black tarry stool but no large-volume or repeated episodes. She reports mi ld discomfort in the upper abdomen/lower chest. This is better than yesterday. Not much of an appetite. She is tolerating clear liquids. She feels weak and feels tired but otherwise okay. She has not been hypoxic. Hemoglobin was 10 last night and 8.1 today. Blood sugar slightly low according to her meter this morning but was okay on fingerstick. Functional Status: Reports: Pain Controlled, Tolerating Diet - Review of Systems General: Reports: Weakness Cardiovascular: Reports: Chest Pain Gastrointestinal: Reports: Abdominal Pain - Patient Data Vitals - Most Recent: Last Vital Signs Temp 36.9 C 02/17/21 02:00 Pulse 82 02/17/21 06:00 Resp 12 02/17/21 06:00 BP 127/58 L 02/17/21 06:00 Pulse Ox 98 02/17/21 06:00 Weight - Most Recent: 97.522 kg I&O - Last 24 Hours: Intake & Output 02/16/21 02/17/21 02/17/21 22:59 06:59 14:59 Intake Total 1194 1025 Output Total 200 Balance 1194 825 Lab Results Last 24 Hours: Laboratory Results - last 24 hr 02/16/21 02/16/21 02/16/21 Range/Units 13:04 13:04 13:04 WBC 5.3 (4.5-11.0) K/uL RBC 2.25 L (3.30-5.50) M/uL Hgb 7.4 L D (12.0-15.0) g/dL Hct 22.2 L (36.0-48.0) % MCV 99 H (80-98) fL MCH 33 H (27-31) pg MCHC 33 (32-36) % Plt Count 115 L (150-400) K/uL Neut % (Auto) 72.5 H (36-66) % Lymph % (Auto) 18.8 L (24-44) % Fisher % (Auto) 6.4 H (2-6) % Eos % (Auto) 1.5 L (2-4) % Baso % (Auto) 0.8 (0-1) % D-Dimer, Quantitative (0.0-500.0) ng/mL Sodium 140 (140-148) mmol/L Potassium 5.4 H (3.6-5.2) mmol/L Chloride 106 (100-108) mmol/L Carbon Dioxide 25 (21-32) mmol/L Anion Gap 14.4 H (5.0-14.0) mmol/L BUN 51 H D (7-18) mg/dL Creatinine 1.6 H (0.6-1.0) mg/dL Est Cr Clr Drug Dosing 28.60 mL/min Estimated GFR (MDRD) 32 L (>60) Glucose 285 H (74-106) mg/dL POC Glucose (74-106) mg/dL Lactic Acid 2.8 H (0.4-2.0) mmol/L Calcium 8.7 (8.5-10.1) mg/dL Magnesium (1.8-2.4) mg/dL Total Bilirubin 0.8 D (0.2-1.0) mg/dL AST 18 (15-37) U/L ALT 21 (12-78) U/L Alkaline Phosphatase 59 (46-116) U/L Troponin I < 0.017 (0.000-0.056) ng/mL Total Protein 6.1 L (6.4-8.2) g/dL Albumin 2.5 L (3.4-5.0) g/dL Globulin 3.6 H (2.3-3.5) g/dL Albumin/Globulin Ratio 0.7 L (1.2-2.2) Lipase 43 L (73-393) U/L Blood Type Gel Antibody Screen Crossmatch 02/16/21 02/16/21 02/16/21 Range/Units 13:04 13:12 14:45 WBC (4.5-11.0) K/uL RBC (3.30-5.50) M/uL Hgb (12.0-15.0) g/dL Hct (36.0-48.0) % MCV (80-98) fL MCH (27-31) pg MCHC (32-36) % Plt Count (150-400) K/uL Neut % (Auto) (36-66) % Lymph % (Auto) (24-44) % Fisher % (Auto) (2-6) % Eos % (Auto) (2-4) % Baso % (Auto) (0-1) % D-Dimer, Quantitative 812.81 H (0.0-500.0) ng/mL Sodium (140-148) mmol/L Potassium (3.6-5.2) mmol/L Chloride (100-108) mmol/L Carbon Dioxide (21-32) mmol/L Anion Gap (5.0-14.0) mmol/L BUN (7-18) mg/dL Creatinine (0.6-1.0) mg/dL Est Cr Clr Drug Dosing mL/min Estimated GFR (MDRD) (>60) Glucose (74-106) mg/dL POC Glucose (74-106) mg/dL Lactic Acid (0.4-2.0) mmol/L Calcium (8.5-10.1) mg/dL Magnesium 1.7 L (1.8-2.4) mg/dL Total Bilirubin (0.2-1.0) mg/dL AST (15-37) U/L ALT (12-78) U/L Alkaline Phosphatase (46-116) U/L Troponin I (0.000-0.056) ng/mL Total Protein (6.4-8.2) g/dL Albumin (3.4-5.0) g/dL Globulin (2.3-3.5) g/dL Albumin/Globulin Ratio (1.2-2.2) Lipase (73-393) U/L Blood Type A POSITIVE Gel Antibody Screen Negative Crossmatch See Detail 02/16/21 02/17/21 02/17/21 Range/Units 21:10 05:30 05:30 WBC 4.1 L (4.5-11.0) K/uL RBC 2.48 L (3.30-5.50) M/uL Hgb 10.2 L D 8.1 L D (12.0-15.0) g/dL Hct 23.6 L (36.0-48.0) % MCV 95 (80-98) fL MCH 33 H (27-31) pg MCHC 34 (32-36) % Plt Count 51 L (150-400) K/uL Neut % (Auto) (36-66) % Lymph % (Auto) (24-44) % Fisher % (Auto) (2-6) % Eos % (Auto) (2-4) % Baso % (Auto) (0-1) % D-Dimer, Quantitative (0.0-500.0) ng/mL Sodium 143 (140-148) mmol/L Potassium 4.5 (3.6-5.2) mmol/L Chloride 111 H (100-108) mmol/L Carbon Dioxide 19 L (21-32) mmol/L Anion Gap 17.5 H (5.0-14.0) mmol/L BUN 51 H (7-18) mg/dL Creatinine 1.4 H (0.6-1.0) mg/dL Est Cr Clr Drug Dosing 32.63 mL/min Estimated GFR (MDRD) 37 L (>60) Glucose 148 H (74-106) mg/dL POC Glucose (74-106) mg/dL Lactic Acid (0.4-2.0) mmol/L Calcium 8.4 L (8.5-10.1) mg/dL Magnesium (1.8-2.4) mg/dL Total Bilirubin (0.2-1.0) mg/dL AST (15-37) U/L ALT (12-78) U/L Alkaline Phosphatase (46-116) U/L Troponin I (0.000-0.056) ng/mL Total Protein (6.4-8.2) g/dL Albumin (3.4-5.0) g/dL Globulin (2.3-3.5) g/dL Albumin/Globulin Ratio (1.2-2.2) Lipase (73-393) U/L Blood Type Gel Antibody Screen Crossmatch 02/17/21 Range/Units 08:39 WBC (4.5-11.0) K/uL RBC (3.30-5.50) M/uL Hgb (12.0-15.0) g/dL Hct (36.0-48.0) % MCV (80-98) fL MCH (27-31) pg MCHC (32-36) % Plt Count (150-400) K/uL Neut % (Auto) (36-66) % Lymph % (Auto) (24-44) % Fisher % (Auto) (2-6) % Eos % (Auto) (2-4) % Baso % (Auto) (0-1) % D-Dimer, Quantitative (0.0-500.0) ng/mL Sodium (140-148) mmol/L Potassium (3.6-5.2) mmol/L Chloride (100-108) mmol/L Carbon Dioxide (21-32) mmol/L Anion Gap (5.0-14.0) mmol/L BUN (7-18) mg/dL Creatinine (0.6-1.0) mg/dL Est Cr Clr Drug Dosing mL/min Estimated GFR (MDRD) (>60) Glucose (74-106) mg/dL POC Glucose 119 H (74-106) mg/dL Lactic Acid (0.4-2.0) mmol/L Calcium (8.5-10.1) mg/dL Magnesium (1.8-2.4) mg/dL Total Bilirubin (0.2-1.0) mg/dL AST (15-37) U/L ALT (12-78) U/L Alkaline Phosphatase (46-116) U/L Troponin I (0.000-0.056) ng/mL Total Protein (6.4-8.2) g/dL Albumin (3.4-5.0) g/dL Globulin (2.3-3.5) g/dL Albumin/Globulin Ratio (1.2-2.2) Lipase (73-393) U/L Blood Type Gel Antibody Screen Crossmatch Fede Results Last 24 Hours: Microbiology 02/16/21 12:59 Stool Occult Blood (FEDE) - Final Stool / Feces Med Orders - Current: Current Medications Acetaminophen (Acetaminophen 325 Mg Tab) 650 mg PO Q4H PRN PRN Reason: Pain (Mild 1-3)/fever Last Admin: 02/16/21 23:23 Dose: 650 mg Documented by: Albuterol (Albuterol 0.083% 2.5 Mg/3 Ml Neb Soln) 2.5 mg NEB Q4H PRN PRN Reason: Shortness Of Breath/wheezing Aspirin (Aspirin 81 Mg Tab.Ec) 81 mg PO DAILY YOVANY Calcium Carbonate/Glycine (Calcium Carbonate 500 Mg Tab.Chew) 1,000 mg PO Q2H PRN PRN Reason: Indigestion Last Admin: 02/17/21 00:36 Dose: 1,000 mg Documented by: Ferric Sodium Gluconate Complex 125 mg/ Sodium Chloride 110 mls @ 100 mls/hr IV ONETIME ONE Stop: 02/17/21 12:05 Lorazepam (Lorazepam 2 Mg/Ml Sdv) 0.5 mg IVPUSH Q4H PRN PRN Reason: Nausea/Vomiting Magnesium Hydroxide (Magnesium Hydroxide 400 Mg/5 Ml Susp 30 Ml Cup) 30 ml PO Q12H PRN PRN Reason: Constipation Melatonin (Melatonin 3 Mg Tab) 9 mg PO BEDTIME PRN PRN Reason: Sleep Last Admin: 02/17/21 00:41 Dose: 9 mg Documented by: Metoprolol Tartrate (Metoprolol Tartrate 25 Mg Tab) 25 mg PO BID ON LICENSE OF [facility] Last Admin: 02/16/21 20:28 Dose: 25 mg Documented by: Morphine Sulfate (Morphine 2 Mg/Ml Syringe) 2 mg IVPUSH Q2H PRN PRN Reason: Pain (severe 7-10) Ondansetron HCl (Ondansetron 4 Mg/2 Ml Sdv) 4 mg IV Q6H PRN PRN Reason: Nausea/Vomiting Ondansetron HCl (Ondansetron 4 Mg Tab.Dis) 4 mg PO Q6H PRN PRN Reason: Nausea able to take PO Oxycodone HCl (Oxycodone 5 Mg Tab) 5 - 10 mg PO Q4H PRN PRN Reason: Pain Pantoprazole Sodium (Pantoprazole 40 Mg Vial) 40 mg IV Q12H ON LICENSE OF [facility] Last Admin: 02/17/21 03:01 Dose: 40 mg Documented by: Senna/Docusate Sodium (Docusate Sodium/Sennosides 50-8.6 Mg Tab) 1 tab PO BID PRN PRN Reason: Constipation Discontinued Medications Sodium Chloride (Normal Saline) 1,000 mls @ 200 mls/hr IV ASDIRECTED ON LICENSE OF [facility] Last Admin: 02/16/21 13:26 Dose: 200 mls/hr Documented by: Sodium Chloride (Normal Saline) 1,000 mls @ 125 mls/hr IV ASDIRECTED ON LICENSE OF [facility] Last Admin: 02/17/21 04:49 Dose: 125 mls/hr Documented by: Pantoprazole Sodium (Pantoprazole 40 Mg Vial) 80 mg IVPUSH .BOLUS ON LICENSE OF [facility] Pantoprazole Sodium (Pantoprazole 40 Mg Vial) 80 mg IVPUSH .BOLUS ONE Stop: 02/16/21 15:01 Last Admin: 02/16/21 14:54 Dose: 80 mg Documented by: Propofol (Propofol 200 Mg/20 Ml Sdv) Confirm Administered Dose 200 mg .ROUTE .STK-MED ONE Stop: 02/16/21 15:22 - Exam Quality Assessment: No: Supplemental Oxygen General: Alert, Oriented, Cooperative, No Acute Distress Lungs: Normal Respiratory Effort Cardiovascular: Regular Rate, Regular Rhythm GI/Abdominal Exam: Soft, No Distention Skin: Warm, Dry Psy/Mental Status: Alert, Normal Affect - Patient Data Lab Results Last 24 hrs: Laboratory Results - last 24 hr 02/16/21 02/16/21 02/16/21 Range/Units 13:04 13:04 13:04 WBC 5.3 (4.5-11.0) K/uL RBC 2.25 L (3.30-5.50) M/uL Hgb 7.4 L D (12.0-15.0) g/dL Hct 22.2 L (36.0-48.0) % MCV 99 H (80-98) fL MCH 33 H (27-31) pg MCHC 33 (32-36) % Plt Count 115 L (150-400) K/uL Neut % (Auto) 72.5 H (36-66) % Lymph % (Auto) 18.8 L (24-44) % Fisher % (Auto) 6.4 H (2-6) % Eos % (Auto) 1.5 L (2-4) % Baso % (Auto) 0.8 (0-1) % D-Dimer, Quantitative (0.0-500.0) ng/mL Sodium 140 (140-148) mmol/L Potassium 5.4 H (3.6-5.2) mmol/L Chloride 106 (100-108) mmol/L Carbon Dioxide 25 (21-32) mmol/L Anion Gap 14.4 H (5.0-14.0) mmol/L BUN 51 H D (7-18) mg/dL Creatinine 1.6 H (0.6-1.0) mg/dL Est Cr Clr Drug Dosing 28.60 mL/min Estimated GFR (MDRD) 32 L (>60) Glucose 285 H (74-106) mg/dL POC Glucose (74-106) mg/dL Lactic Acid 2.8 H (0.4-2.0) mmol/L Calcium 8.7 (8.5-10.1) mg/dL Magnesium (1.8-2.4) mg/dL Total Bilirubin 0.8 D (0.2-1.0) mg/dL AST 18 (15-37) U/L ALT 21 (12-78) U/L Alkaline Phosphatase 59 (46-116) U/L Troponin I < 0.017 (0.000-0.056) ng/mL Total Protein 6.1 L (6.4-8.2) g/dL Albumin 2.5 L (3.4-5.0) g/dL Globulin 3.6 H (2.3-3.5) g/dL Albumin/Globulin Ratio 0.7 L (1.2-2.2) Lipase 43 L (73-393) U/L Blood Type Gel Antibody Screen Crossmatch 02/16/21 02/16/21 02/16/21 Range/Units 13:04 13:12 14:45 WBC (4.5-11.0) K/uL RBC (3.30-5.50) M/uL Hgb (12.0-15.0) g/dL Hct (36.0-48.0) % MCV (80-98) fL MCH (27-31) pg MCHC (32-36) % Plt Count (150-400) K/uL Neut % (Auto) (36-66) % Lymph % (Auto) (24-44) % Fisher % (Auto) (2-6) % Eos % (Auto) (2-4) % Baso % (Auto) (0-1) % D-Dimer, Quantitative 812.81 H (0.0-500.0) ng/mL Sodium (140-148) mmol/L Potassium (3.6-5.2) mmol/L Chloride (100-108) mmol/L Carbon Dioxide (21-32) mmol/L Anion Gap (5.0-14.0) mmol/L BUN (7-18) mg/dL Creatinine (0.6-1.0) mg/dL Est Cr Clr Drug Dosing mL/min Estimated GFR (MDRD) (>60) Glucose (74-106) mg/dL POC Glucose (74-106) mg/dL Lactic Acid (0.4-2.0) mmol/L Calcium (8.5-10.1) mg/dL Magnesium 1.7 L (1.8-2.4) mg/dL Total Bilirubin (0.2-1.0) mg/dL AST (15-37) U/L ALT (12-78) U/L Alkaline Phosphatase (46-116) U/L Troponin I (0.000-0.056) ng/mL Total Protein (6.4-8.2) g/dL Albumin (3.4-5.0) g/dL Globulin (2.3-3.5) g/dL Albumin/Globulin Ratio (1.2-2.2) Lipase (73-393) U/L Blood Type A POSITIVE Gel Antibody Screen Negative Crossmatch See Detail 02/16/21 02/17/21 02/17/21 Range/Units 21:10 05:30 05:30 WBC 4.1 L (4.5-11.0) K/uL RBC 2.48 L (3.30-5.50) M/uL Hgb 10.2 L D 8.1 L D (12.0-15.0) g/dL Hct 23.6 L (36.0-48.0) % MCV 95 (80-98) fL MCH 33 H (27-31) pg MCHC 34 (32-36) % Plt Count 51 L (150-400) K/uL Neut % (Auto) (36-66) % Lymph % (Auto) (24-44) % Fisher % (Auto) (2-6) % Eos % (Auto) (2-4) % Baso % (Auto) (0-1) % D-Dimer, Quantitative (0.0-500.0) ng/mL Sodium 143 (140-148) mmol/L Potassium 4.5 (3.6-5.2) mmol/L Chloride 111 H (100-108) mmol/L Carbon Dioxide 19 L (21-32) mmol/L Anion Gap 17.5 H (5.0-14.0) mmol/L BUN 51 H (7-18) mg/dL Creatinine 1.4 H (0.6-1.0) mg/dL Est Cr Clr Drug Dosing 32.63 mL/min Estimated GFR (MDRD) 37 L (>60) Glucose 148 H (74-106) mg/dL POC Glucose (74-106) mg/dL Lactic Acid (0.4-2.0) mmol/L Calcium 8.4 L (8.5-10.1) mg/dL Magnesium (1.8-2.4) mg/dL Total Bilirubin (0.2-1.0) mg/dL AST (15-37) U/L ALT (12-78) U/L Alkaline Phosphatase (46-116) U/L Troponin I (0.000-0.056) ng/mL Total Protein (6.4-8.2) g/dL Albumin (3.4-5.0) g/dL Globulin (2.3-3.5) g/dL Albumin/Globulin Ratio (1.2-2.2) Lipase (73-393) U/L Blood Type Gel Antibody Screen Crossmatch 02/17/21 Range/Units 08:39 WBC (4.5-11.0) K/uL RBC (3.30-5.50) M/uL Hgb (12.0-15.0) g/dL Hct (36.0-48.0) % MCV (80-98) fL MCH (27-31) pg MCHC (32-36) % Plt Count (150-400) K/uL Neut % (Auto) (36-66) % Lymph % (Auto) (24-44) % Fisher % (Auto) (2-6) % Eos % (Auto) (2-4) % Baso % (Auto) (0-1) % D-Dimer, Quantitative (0.0-500.0) ng/mL Sodium (140-148) mmol/L Potassium (3.6-5.2) mmol/L Chloride (100-108) mmol/L Carbon Dioxide (21-32) mmol/L Anion Gap (5.0-14.0) mmol/L BUN (7-18) mg/dL Creatinine (0.6-1.0) mg/dL Est Cr Clr Drug Dosing mL/min Estimated GFR (MDRD) (>60) Glucose (74-106) mg/dL POC Glucose 119 H (74-106) mg/dL Lactic Acid (0.4-2.0) mmol/L Calcium (8.5-10.1) mg/dL Magnesium (1.8-2.4) mg/dL Total Bilirubin (0.2-1.0) mg/dL AST (15-37) U/L ALT (12-78) U/L Alkaline Phosphatase (46-116) U/L Troponin I (0.000-0.056) ng/mL Total Protein (6.4-8.2) g/dL Albumin (3.4-5.0) g/dL Globulin (2.3-3.5) g/dL Albumin/Globulin Ratio (1.2-2.2) Lipase (73-393) U/L Blood Type Gel Antibody Screen Crossmatch Result Diagrams: 02/17/21 05:30 02/17/21 05:30 Fede Results Last 24 hrs: Microbiology 02/16/21 12:59 Stool Occult Blood (FEDE) - Final Stool / Feces Sepsis Event Note - Evaluation Sepsis Screening Result: No Definite Risk - Focused Exam Vital Signs: Vital Signs Temp Pulse Pulse Resp BP BP Pulse Ox 02/17/21 06:00 82 12 127/58 L 98 02/17/21 04:00 83 14 123/48 L 99 02/17/21 02:00 36.9 C 76 19 98/38 L 97 02/17/21 00:00 78 78 18 129/57 L 129/57 L 96 02/16/21 22:00 79 19 115/50 L 99 - Problem List & Annotations (1) GI (gastrointestinal bleed) SNOMED Code(s): 26592904 Code(s): K92.2 - GASTROINTESTINAL HEMORRHAGE, UNSPECIFIED Status: Acute Current Visit: Yes Qualifiers: GI bleed type/associated pathology: melena Qualified Code(s): K92.1 - Melena (2) Blood loss anemia SNOMED Code(s): 431869938 Code(s): D50.0 - IRON DEFICIENCY ANEMIA SECONDARY TO BLOOD LOSS (CHRONIC) Status: Acute Current Visit: Yes (3) Abdominal pain SNOMED Code(s): 47222295 Code(s): R10.9 - UNSPECIFIED ABDOMINAL PAIN Status: Acute Current Visit: Yes Qualifiers: Abdominal location: generalized Qualified Code(s): R10.84 - Generalized abdominal pain - Problem List Review Problem List Initiated/Reviewed/Updated: Yes - My Orders Last 24 Hours: My Active Orders 02/16/21 14:16 Resuscitation Status Routine 02/16/21 14:30 Acetaminophen [TylenoL] 650 mg PO Q4H PRN Albuterol [Proventil Neb Soln] 2.5 mg NEB Q4H PRN Docusate Sodium/Sennosides [Senna Plus] 1 tab PO BID PRN LORazepam [Ativan] 0.5 mg IVPUSH Q4H PRN Magnesium Hydroxide [Milk of Magnesia] 30 ml PO Q12H PRN Melatonin 9 mg PO BEDTIME PRN Morphine 2 mg IVPUSH Q2H PRN Ondansetron [Zofran ODT] 4 mg PO Q6H PRN Ondansetron [Zofran] 4 mg IV Q6H PRN oxyCODONE 5 - 10 mg PO Q4H PRN 02/16/21 14:30 Patient Status [ADT] Routine Antiembolic Devices [RC] .Routine Cardiac Monitoring [RC] CONTINUOUS Communication Order [RC] PRN Communication Order [RC] PRN Intake and Output [RC] Q12H Notify Provider Consults [RC] ASDIRECTED Notify Provider Vital Signs [RC] ASDIRECTED Notify Provider [RC] PRN Oxygen Therapy [RC] PRN RT Aerosol Therapy [RC] ASDIRECTED Up With Assistance [RC] ASDIRECTED VTE/DVT Education [RC] Per Unit Routine Vital Signs [RC] Q2HR Consult to Physician [CONS] Routine May Take Own Home Medications [OM.PC] Routine Sequential Compression Device [OM.PC] Routine VTE Pharmacological Contraindications [AST] Routine 02/16/21 Dinner Clear Liquid Diet [DIET] 02/16/21 21:00 Metoprolol Tartrate [Lopressor] 25 mg PO BID 02/17/21 00:30 Calcium Carbonate [Tums] 1,000 mg PO Q2H PRN 02/17/21 03:00 Pantoprazole [ProTONIX IV] 40 mg IV Q12H 02/17/21 09:00 Aspirin [Halfprin] 81 mg PO DAILY 02/17/21 09:09 Convert IV to Saline Lock [OM.PC] Routine 02/17/21 11:00 Sodium Ferric Gluconate Cmplex [Ferrlecit IV] 125 mg Sodium Chloride 0.9% [Normal Saline] 100 ml IV ONETIME 02/18/21 05:00 BASIC METABOLIC PANEL,BMP [CHEM] Timed CBC W/O DIFF,HEMOGRAM [HEME] Timed (1) 02/18/21 07:00 Myocardial Perf Spect Multi [NM] Routine 02/18/21 07:30 GLUCOSE POC LAB TO COLLECT JPM [POC] QIDACANDBED 02/18/21 11:30 GLUCOSE POC LAB TO COLLECT JPM [POC] QIDACANDBED 02/18/21 16:30 GLUCOSE POC LAB TO COLLECT JPM [POC] QIDACANDBED 02/18/21 21:00 GLUCOSE POC LAB TO COLLECT JPM [POC] QIDACANDBED 02/19/21 07:30 GLUCOSE POC LAB TO COLLECT JPM [POC] QIDACANDBED 02/19/21 11:30 GLUCOSE POC LAB TO COLLECT JPM [POC] QIDACANDBED 02/19/21 16:30 GLUCOSE POC LAB TO COLLECT JPM [POC] QIDACANDBED 02/19/21 21:00 GLUCOSE POC LAB TO COLLECT JPM [POC] QIDACANDBED 02/20/21 07:30 GLUCOSE POC LAB TO COLLECT JPM [POC] QIDACANDBED 02/20/21 11:30 GLUCOSE POC LAB TO COLLECT JPM [POC] QIDACANDBED 02/20/21 16:30 GLUCOSE POC LAB TO COLLECT JPM [POC] QIDACANDBED 02/20/21 21:00 GLUCOSE POC LAB TO COLLECT JPM [POC] QIDACANDBED 02/21/21 07:30 GLUCOSE POC LAB TO COLLECT JPM [POC] QIDACANDBED 02/21/21 11:30 GLUCOSE POC LAB TO COLLECT JPM [POC] QIDACANDBED 02/21/21 16:30 GLUCOSE POC LAB TO COLLECT JPM [POC] QIDACANDBED 02/21/21 21:00 GLUCOSE POC LAB TO COLLECT JPM [POC] QIDACANDBED - Plan Plan:: ASSESSMENT AND PLAN - Acute gastrointestinal hemorrhage-complicated by anemia due to blood loss likely secondary to underlying gastric ulcer. Hemoglobin somewhat improved after blood transfusion. EGD I think was most suggestive of an ulcer though it was not able to be visualized because of clot and food bolus adherent to the wall of the stomach. Stable overnight with no additional bleeding. Mild esophageal varices were also noted on the EGD. -IV pantoprazole every 12 hours -Surgical consultation appreciated, plan for repeat EGD in 2 or 3 days unless condition changes -Saline lock IV -Symptomatic management of pain and or nausea -Serial hemoglobin levels Hyperkalemia-improved with fluids. -Hold CAYETANO inhibitor -Recheck in the morning Coronary artery disease-she may have what sounds like stable angina. The chest discomfort she describes could be related to an ulcer as well. She would benefit from further testing once her bleeding has stopped and she is stable. -Continue medical management including aspirin, beta-xuan and statin -Stress test on Insulin-dependent diabetes mellitus-well controlled by history. She would like to continue using her insulin pump. Sugars have been stable. -Patient may use her own insulin pump and glucose monitoring supplies Maintenance issues - -DVT prophylaxis-mechanical with active hemorrhage -GI prophylaxis-PPI as above -Nutrition-nothing by mouth until after the EGD Disposition -I anticipate discharge home after the hospital stay Primary care physician - Dr Frances Laura M.D.
[2021-02-17] MEDS: Aspirin 81 MG Tab.EC PO SCH (10:00)
[2021-02-17] MEDS: Metoprolol Tartrate 25 MG Tab PO SCH ×2 (10:00→21:26)
--- NOTE | 2021-02-17 10:33 | OR ---
DATE OF PROCEDURE: 02/16/2021 SURGEON: Eliel Aragon MD PROCEDURE PERFORMED: Esophagogastroduodenoscopy. FINDINGS: 1. A large amount of clot noted in the stomach. 2. Esophageal varices, mild to moderate. No evidence of active bleeding. No clot noted in association with esophageal varices. RISKS: Risks, benefits, alternatives, and limitations including, but not limited to infection, bleeding, perforation of abdominal structures, false positives, false negatives were explained to the patient who wished to proceed. PROCEDURE IN DETAIL: The patient was placed in the left lateral decubitus position. The EGD scope was introduced and advanced. There was a large amount of old blood and a large amount of food material remaining in the stomach. This actually was occluding investigation of the duodenum. This was most likely the etiology of the bleeding; however, this was not actively bleeding. No masses or ulcerations could be seen, however. The pretest probability was low considering the remnant food. The air was removed. The esophagus was inspected without abnormality. The patient will be re-scoped in a few days once this has cleared. Eliel Aragon MD /[id number]
[2021-02-17] MEDS ORDERED: Sodium Ferric Gluconate Cmplex 125 MG in Sodium Chloride 0.9% 100 ML IV ONE (11:00)
[2021-02-17] MEDS: Acetaminophen 325 MG Tab PO PRN (15:41)
[2021-02-18] MEDS: Pantoprazole 40 MG Vial IV SCH ×2 (04:02→15:50)
[2021-02-18] MEDS ORDERED: LORazepam 0.5 MG Tab PO PRN (09:25)
--- NOTE | 2021-02-18 09:28 | PCM.PN ---
- General Info Date of Service: 02/18/21 Subjective Update: There were no acute events overnight. Vital signs have been stable. Patient reports mild epigastric abdominal discomfort that radiates into the lower chest. This changes with position and she is currently comfortable. She has had mild nausea. She is able to keep down clear liquids but feels that they are aggravating her heartburn and would like to try full liquids if possible. She is having small quantities of black stool intermittently but no large volume melena. No fevers. Hemoglobin down to 7.4 today. Functional Status: Reports: Pain Controlled, Tolerating Diet - Review of Systems General: Denies: Fever Pulmonary: Reports: Shortness of Breath Cardiovascular: Reports: Chest Pain Gastrointestinal: Reports: Abdominal Pain, Melena - Patient Data Vitals - Most Recent: Last Vital Signs Temp 36.8 C 02/18/21 02:00 Pulse 82 02/18/21 06:00 Resp 16 02/18/21 06:00 BP 121/47 L 02/18/21 06:00 Pulse Ox 96 02/18/21 06:00 Weight - Most Recent: 97.522 kg I&O - Last 24 Hours: Intake & Output 02/17/21 02/18/21 02/18/21 22:59 06:59 14:59 Intake Total 1066 Output Total 475 Balance 591 Lab Results Last 24 Hours: Laboratory Results - last 24 hr 02/17/21 02/18/21 02/18/21 Range/Units 21:25 00:56 05:45 WBC 3.1 L (4.5-11.0) K/uL RBC 2.33 L (3.30-5.50) M/uL Hgb 7.4 L (12.0-15.0) g/dL Hct 22.9 L (36.0-48.0) % MCV 98 (80-98) fL MCH 32 H (27-31) pg MCHC 32 (32-36) % Plt Count 88 L (150-400) K/uL Sodium (140-148) mmol/L Potassium (3.6-5.2) mmol/L Chloride (100-108) mmol/L Carbon Dioxide (21-32) mmol/L Anion Gap (5.0-14.0) mmol/L BUN (7-18) mg/dL Creatinine (0.6-1.0) mg/dL Est Cr Clr Drug Dosing mL/min Estimated GFR (MDRD) (>60) Glucose (74-106) mg/dL POC Glucose 169 H 182 H (74-106) mg/dL Calcium (8.5-10.1) mg/dL 02/18/21 02/18/21 Range/Units 05:45 08:01 WBC (4.5-11.0) K/uL RBC (3.30-5.50) M/uL Hgb (12.0-15.0) g/dL Hct (36.0-48.0) % MCV (80-98) fL MCH (27-31) pg MCHC (32-36) % Plt Count (150-400) K/uL Sodium 143 (140-148) mmol/L Potassium 4.6 (3.6-5.2) mmol/L Chloride 109 H (100-108) mmol/L Carbon Dioxide 21 (21-32) mmol/L Anion Gap 17.6 H (5.0-14.0) mmol/L BUN 41 H (7-18) mg/dL Creatinine 1.4 H (0.6-1.0) mg/dL Est Cr Clr Drug Dosing 32.63 mL/min Estimated GFR (MDRD) 37 L (>60) Glucose 240 H (74-106) mg/dL POC Glucose 271 H (74-106) mg/dL Calcium 8.3 L (8.5-10.1) mg/dL Med Orders - Current: Current Medications Acetaminophen (Acetaminophen 325 Mg Tab) 650 mg PO Q4H PRN PRN Reason: Pain (Mild 1-3)/fever Last Admin: 02/17/21 15:41 Dose: 650 mg Documented by: Albuterol (Albuterol 0.083% 2.5 Mg/3 Ml Neb Soln) 2.5 mg NEB Q4H PRN PRN Reason: Shortness Of Breath/wheezing Aspirin (Aspirin 81 Mg Tab.Ec) 81 mg PO DAILY YOVANY Last Admin: 02/17/21 10:00 Dose: 81 mg Documented by: Calcium Carbonate/Glycine (Calcium Carbonate 500 Mg Tab.Chew) 1,000 mg PO Q2H PRN PRN Reason: Indigestion Last Admin: 02/17/21 00:36 Dose: 1,000 mg Documented by: Lorazepam (Lorazepam 2 Mg/Ml Sdv) 0.5 mg IVPUSH Q4H PRN PRN Reason: Nausea/Vomiting Last Admin: 02/17/21 22:21 Dose: 0.5 mg Documented by: Magnesium Hydroxide (Magnesium Hydroxide 400 Mg/5 Ml Susp 30 Ml Cup) 30 ml PO Q12H PRN PRN Reason: Constipation Melatonin (Melatonin 3 Mg Tab) 9 mg PO BEDTIME PRN PRN Reason: Sleep Last Admin: 02/17/21 21:28 Dose: 9 mg Documented by: Metoprolol Tartrate (Metoprolol Tartrate 25 Mg Tab) 25 mg PO BID [facility] Last Admin: 02/17/21 21:26 Dose: 25 mg Documented by: Morphine Sulfate (Morphine 2 Mg/Ml Syringe) 2 mg IVPUSH Q2H PRN PRN Reason: Pain (severe 7-10) Ondansetron HCl (Ondansetron 4 Mg/2 Ml Sdv) 4 mg IV Q6H PRN PRN Reason: Nausea/Vomiting Ondansetron HCl (Ondansetron 4 Mg Tab.Dis) 4 mg PO Q6H PRN PRN Reason: Nausea able to take PO Oxycodone HCl (Oxycodone 5 Mg Tab) 5 - 10 mg PO Q4H PRN PRN Reason: Pain Pantoprazole Sodium (Pantoprazole 40 Mg Vial) 40 mg IV Q12H [facility] Last Admin: 02/18/21 04:02 Dose: 40 mg Documented by: Senna/Docusate Sodium (Docusate Sodium/Sennosides 50-8.6 Mg Tab) 1 tab PO BID P RN PRN Reason: Constipation Discontinued Medications Sodium Chloride (Normal Saline) 1,000 mls @ 200 mls/hr IV ASDIRECTED [facility] Last Admin: 02/16/21 13:26 Dose: 200 mls/hr Documented by: Sodium Chloride (Normal Saline) 1,000 mls @ 125 mls/hr IV ASDIRECTED [facility] Last Admin: 02/17/21 04:49 Dose: 125 mls/hr Documented by: Ferric Sodium Gluconate Complex 125 mg/ Sodium Chloride 110 mls @ 100 mls/hr IV ONETIME ONE Stop: 02/17/21 12:05 Last Admin: 02/17/21 10:53 Dose: 100 mls/hr Documented by: Pantoprazole Sodium (Pantoprazole 40 Mg Vial) 80 mg IVPUSH .BOLUS YOVANY Pantoprazole Sodium (Pantoprazole 40 Mg Vial) 80 mg IVPUSH .BOLUS ONE Stop: 02/16/21 15:01 Last Admin: 02/16/21 14:54 Dose: 80 mg Documented by: Propofol (Propofol 200 Mg/20 Ml Sdv) Confirm Administered Dose 200 mg .ROUTE .STK-MED ONE Stop: 02/16/21 15:22 - Exam Quality Assessment: No: Supplemental Oxygen General: Alert, Oriented, Cooperative, No Acute Distress Lungs: Normal Respiratory Effort. No: Wheezing Cardiovascular: Regular Rate, Regular Rhythm GI/Abdominal Exam: Soft, No Distention, Tender (mild epigastric and left side ). No: Guarding Extremities: No Pedal Edema. No: Increased Warmth Skin: Warm, Dry Psy/Mental Status: Alert, Normal Affect - Patient Data Lab Results Last 24 hrs: Laboratory Results - last 24 hr 02/17/21 02/18/21 02/18/21 Range/Units 21:25 00:56 05:45 WBC 3.1 L (4.5-11.0) K/uL RBC 2.33 L (3.30-5.50) M/uL Hgb 7.4 L (12.0-15.0) g/dL Hct 22.9 L (36.0-48.0) % MCV 98 (80-98) fL MCH 32 H (27-31) pg MCHC 32 (32-36) % Plt Count 88 L (150-400) K/uL Sodium (140-148) mmol/L Potassium (3.6-5.2) mmol/L Chloride (100-108) mmol/L Carbon Dioxide (21-32) mmol/L Anion Gap (5.0-14.0) mmol/L BUN (7-18) mg/dL Creatinine (0.6-1.0) mg/dL Est Cr Clr Drug Dosing mL/min Estimated GFR (MDRD) (>60) Glucose (74-106) mg/dL POC Glucose 169 H 182 H (74-106) mg/dL Calcium (8.5-10.1) mg/dL 02/18/21 02/18/21 Range/Units 05:45 08:01 WBC (4.5-11.0) K/uL RBC (3.30-5.50) M/uL Hgb (12.0-15.0) g/dL Hct (36.0-48.0) % MCV (80-98) fL MCH (27-31) pg MCHC (32-36) % Plt Count (150-400) K/uL Sodium 143 (140-148) mmol/L Potassium 4.6 (3.6-5.2) mmol/L Chloride 109 H (100-108) mmol/L Carbon Dioxide 21 (21-32) mmol/L Anion Gap 17.6 H (5.0-14.0) mmol/L BUN 41 H (7-18) mg/dL Creatinine 1.4 H (0.6-1.0) mg/dL Est Cr Clr Drug Dosing 32.63 mL/min Estimated GFR (MDRD) 37 L (>60) Glucose 240 H (74-106) mg/dL POC Glucose 271 H (74-106) mg/dL Calcium 8.3 L (8.5-10.1) mg/dL Result Diagrams: 02/18/21 05:45 02/18/21 05:45 Sepsis Event Note - Evaluation Sepsis Screening Result: No Definite Risk - Focused Exam Vital Signs: Vital Signs Temp Pulse Resp BP Pulse Ox 02/18/21 06:00 82 16 121/47 L 96 02/18/21 04:00 82 17 107/50 L 16 L 02/18/21 02:00 36.8 C 13 112/41 L 93 L 02/18/21 00:00 15 107/34 L 97 02/17/21 22:00 17 117/36 L 96 - Problem List & Annotations (1) GI (gastrointestinal bleed) SNOMED Code(s): 14258086 Code(s): K92.2 - GASTROINTESTINAL HEMORRHAGE, UNSPECIFIED Status: Acute Current Visit: Yes Qualifiers: GI bleed type/associated pathology: melena Qualified Code(s): K92.1 - M israel (2) Blood loss anemia SNOMED Code(s): 965082136 Code(s): D50.0 - IRON DEFICIENCY ANEMIA SECONDARY TO BLOOD LOSS (CHRONIC) Status: Acute Current Visit: Yes (3) Abdominal pain SNOMED Code(s): 41978539 Code(s): R10.9 - UNSPECIFIED ABDOMINAL PAIN Status: Acute Current Visit: Yes Qualifiers: Abdominal location: generalized Qualified Code(s): R10.84 - Generalized abdominal pain - Problem List Review Problem List Initiated/Reviewed/Updated: Yes - My Orders Last 24 Hours: My Active Orders 02/17/21 09:00 Aspirin [Halfprin] 81 mg PO DAILY 02/17/21 09:09 Convert IV to Saline Lock [OM.PC] Routine 02/18/21 07:00 Myocardial Perf Spect Multi [NM] Routine 02/18/21 09:25 LORazepam [Ativan] 0.5 mg PO Q4H PRN 02/18/21 Lunch Full Liquid Diet [DIET] 02/18/21 Dinner NPO After Midnight [Nothing per Oral After Midnight Diet] [DIET] HGB [HEMOGLOBIN] [HEME] Timed 02/19/21 05:00 BASIC METABOLIC PANEL,BMP [CHEM] Timed CBC W/O DIFF,HEMOGRAM [HEME] Timed (1) 02/19/21 07:30 GLUCOSE POC LAB TO COLLECT JPM [POC] QIDACANDBED 02/19/21 11:30 GLUCOSE POC LAB TO COLLECT JPM [POC] QIDACANDBED 02/19/21 16:30 GLUCOSE POC LAB TO COLLECT JPM [POC] QIDACANDBED 02/19/21 21:00 GLUCOSE POC LAB TO COLLECT JPM [POC] QIDACANDBED 02/20/21 07:30 GLUCOSE POC LAB TO COLLECT JPM [POC] QIDACANDBED 02/20/21 11:30 GLUCOSE POC LAB TO COLLECT JPM [POC] QIDACANDBED 02/20/21 16:30 GLUCOSE POC LAB TO COLLECT JPM [POC] QIDACANDBED 02/20/21 21:00 GLUCOSE POC LAB TO COLLECT JPM [POC] QIDACANDBED 02/21/21 07:30 GLUCOSE POC LAB TO COLLECT JPM [POC] QIDACANDBED 02/21/21 11:30 GLUCOSE POC LAB TO COLLECT JPM [POC] QIDACANDBED 02/21/21 16:30 GLUCOSE POC LAB TO COLLECT JPM [POC] QIDACANDBED 02/21/21 21:00 GLUCOSE POC LAB TO COLLECT JPM [POC] QIDACANDBED - Plan Plan:: ASSESSMENT AND PLAN - Acute gastrointestinal hemorrhage-complicated by anemia due to blood loss likely secondary to underlying gastric ulcer. Hemoglobin slightly lower but no impressive evidence for ongoing bleeding. Vital signs have been stable. Tolerating clear liquids. -IV pantoprazole every 12 hours -Surgical consultation appreciated, plan for repeat EGD tomorrow morning -Saline lock IV -Symptomatic management of pain and or nausea -Serial hemoglobin levels Hyperkalemia-improved with fluids. Blood pressure still on the low side. -Hold CAYETANO inhibitor -Recheck in the morning Coronary artery disease-she may have what sounds like stable angina. The chest discomfort she describes could be related to an ulcer as well. Symptoms improving during the hospital stay. -Continue medical management including aspirin, beta-xuan and statin -Stress test tomorrow morning Insulin-dependent diabetes mellitus-well controlled by history. Sugars were trending down so insulin pump was stopped last night. Sugars are elevated this morning. -Medium dose sliding scale insulin Maintenance issues - -DVT prophylaxis-mechanical with active hemorrhage -GI prophylaxis-PPI as above -Nutrition-full liquids today, nothing by mouth after midnight Disposition -I anticipate discharge home after the hospital stay Primary care physician - Dr Frances Laura M.D.
[2021-02-18] MEDS: Metoprolol Tartrate 25 MG Tab PO SCH ×2 (09:57→20:42)
[2021-02-18] MEDS: Aspirin 81 MG Tab.EC PO SCH (09:57)
[2021-02-18] MEDS: Insulin Lispro 100 Unit/ML 3 ML KwikPen SUBCUT SCH ×3 (10:48→20:41)
[2021-02-18] MEDS ORDERED: 50% Dextrose in Water 50 ML Syringe IVPUSH PRN (16:17)
[2021-02-18] MEDS ORDERED: Glucagon,Human Recombinant 1 MG Vial IM PRN (16:17)
[2021-02-18] MEDS: Acetaminophen 325 MG Tab PO PRN (17:20)
[2021-02-18] MEDS: Insulin Glargine,Human Rec. Analog 100 Units/ML 3 ML Pen SUBCUT SCH (20:42)
[2021-02-19] MEDS: Pantoprazole 40 MG Vial IV SCH (02:09)
[2021-02-19] MEDS: Insulin Lispro 100 Unit/ML 3 ML KwikPen SUBCUT SCH ×4 (07:08→20:55)
[2021-02-19] MEDS ORDERED: fentaNYL 100 MCG/2 ML SDV ONE (07:37)
[2021-02-19] MEDS ORDERED: Propofol 200 MG/20 ML SDV ONE (07:37)
[2021-02-19] MEDS: Metoprolol Tartrate 25 MG Tab PO SCH ×2 (10:04→20:54)
[2021-02-19] MEDS: Aspirin 81 MG Tab.EC PO SCH (10:05)
[2021-02-19] MEDS ORDERED: Aminophylline 500 MG/20 ML SDV IVPUSH ONE (12:19)
--- NOTE | 2021-02-19 13:45 | PCM.PRNOTE ---
- Free Text/Narrative Note: Date of Service: 02/19/2021 Procedure: Lexiscan stress test Indication for procedure: exertional chest pain Referring provider: Garland Laura MD Primary care provider: Dr Jose Daniels Description of the procedure: Lexiscan stress test with myocardial perfusion Location: Inpatient Baseline EKG: Normal sinus rhythm with a normal axis and no significant abnormalities Baseline heart rate: 77 Baseline blood pressure: 116/53 Target heart rate: 126 Review of the continuous EKG monitoring: No significant changes to the ST segments or T waves during the stress or recovery portion of the test. Maximum heart rate: 85 at 2 minutes of recovery Blood pressure trend: Blood pressure stable throughout the course of the stress test. Post procedure vitals: Heart rate 82 and blood pressure 125/57 Law Firm Consultant's notes: Patient reported right shoulder pain, shortness of breath, nausea and stomach cramping as well as a headache after Lexiscan was administered. She did receive 125 mg of IV Aminophyllin after 4 minutes of recovery. Symptoms resolved after this. No report of chest pain during stress or recovery portion of the test. Interpretation: Negative EKG portion of the stress test. She did not report chest pain. The nuclear medicine portion of the stress test will be interpreted separately. Garland Laura MD
--- NOTE | 2021-02-19 13:52 | PCM.PN ---
- General Info Date of Service: 02/19/21 Subjective Update: No acute events overnight. Vital signs have been stable. Mild intermittent chest pain which is not exertional but seems more positional. No nausea or vomiting. Still has some mild epigastric abdominal pain. No fevers. EGD this morning showed some esophageal varices, 1 of which had an ulcer of the appeared to be healing. This was successfully banded. Blood sugars moderately elevated overnight but better this morning. Functional Status: Reports: Pain Controlled - Patient Data Vitals - Most Recent: Last Vital Signs Temp 36.8 C 02/19/21 12:25 Pulse 84 02/19/21 12:23 Resp 16 02/19/21 12:23 BP 130/61 02/19/21 12:23 Pulse Ox 94 L 02/19/21 12:23 Weight - Most Recent: 97.522 kg I&O - Last 24 Hours: Intake & Output 02/18/21 02/19/21 02/19/21 22:59 06:59 14:59 Intake Total 1000 Output Total 750 400 Balance 250 -400 Lab Results Last 24 Hours: Laboratory Results - last 24 hr 02/18/21 02/18/21 02/18/21 Range/Units 17:06 17:29 20:40 WBC (4.5-11.0) K/uL RBC (3.30-5.50) M/uL Hgb 7.5 L (12.0-15.0) g/dL Hct (36.0-48.0) % MCV (80-98) fL MCH (27-31) pg MCHC (32-36) % Plt Count (150-400) K/uL Sodium (140-148) mmol/L Potassium (3.6-5.2) mmol/L Chloride (100-108) mmol/L Carbon Dioxide (21-32) mmol/L Anion Gap (5.0-14.0) mmol/L BUN (7-18) mg/dL Creatinine (0.6-1.0) mg/dL Est Cr Clr Drug Dosing mL/min Estimated GFR (MDRD) (>60) Glucose (74-106) mg/dL POC Glucose 354 H 363 H (74-106) mg/dL Calcium (8.5-10.1) mg/dL 02/19/21 02/19/21 02/19/21 Range/Units 04:45 04:45 07:04 WBC 3.8 L (4.5-11.0) K/uL RBC 2.34 L (3.30-5.50) M/uL Hgb 7.4 L (12.0-15.0) g/dL Hct 23.1 L (36.0-48.0) % MCV 99 H (80-98) fL MCH 32 H (27-31) pg MCHC 32 (32-36) % Plt Count 90 L (150-400) K/uL Sodium 142 (140-148) mmol/L Potassium 4.5 (3.6-5.2) mmol/L Chloride 108 (100-108) mmol/L Carbon Dioxide 24 (21-32) mmol/L Anion Gap 10.5 (5.0-14.0) mmol/L BUN 37 H (7-18) mg/dL Creatinine 1.5 H (0.6-1.0) mg/dL Est Cr Clr Drug Dosing 30.46 mL/min Estimated GFR (MDRD) 34 L (>60) Glucose 230 H (74-106) mg/dL POC Glucose 223 H (74-106) mg/dL Calcium 8.3 L (8.5-10.1) mg/dL 02/19/21 Range/Units 12:58 WBC (4.5-11.0) K/uL RBC (3.30-5.50) M/uL Hgb (12.0-15.0) g/dL Hct (36.0-48.0) % MCV (80-98) fL MCH (27-31) pg MCHC (32-36) % Plt Count (150-400) K/uL Sodium (140-148) mmol/L Potassium (3.6-5.2) mmol/L Chloride (100-108) mmol/L Carbon Dioxide (21-32) mmol/L Anion Gap (5.0-14.0) mmol/L BUN (7-18) mg/dL Creatinine (0.6-1.0) mg/dL Est Cr Clr Drug Dosing mL/min Estimated GFR (MDRD) (>60) Glucose (74-106) mg/dL POC Glucose 222 H (74-106) mg/dL Calcium (8.5-10.1) mg/dL Med Orders - Current: Current Medications Acetaminophen (Acetaminophen 325 Mg Tab) 650 mg PO Q4H PRN PRN Reason: Pain (Mild 1-3)/fever Last Admin: 02/18/21 17:20 Dose: 650 mg Documented by: Albuterol (Albuterol 0.083% 2.5 Mg/3 Ml Neb Soln) 2.5 mg NEB Q4H PRN PRN Reason: Shortness Of Breath/wheezing Aspirin (Aspirin 81 Mg Tab.Ec) 81 mg PO DAILY [facility] Last Admin: 02/19/21 10:05 Dose: 81 mg Documented by: Calcium Carbonate/Glycine (Calcium Carbonate 500 Mg Tab.Chew) 1,000 mg PO Q2H PRN PRN Reason: Indigestion Last Admin: 02/17/21 00:36 Dose: 1,000 mg Documented by: Dextrose/Water (50% Dextrose In Water 50 Ml Syringe) 50 ml IVPUSH ASDIRECTED PRN PRN Reason: Hypoglycemia Glucagon (Glucagon,Human Recombinant 1 Mg Vial) 1 mg IM ASDIRECTED PRN PRN Reason: Hypoglycemia Insulin Glargine (Insulin Glargine,Human Rec. Analog 100 Units/Ml 3 Ml Pen) 30 units SUBCUT BEDTIME [facility] Last Admin: 02/18/21 20:42 Dose: 30 units Documented by: Insulin Human Lispro (Insulin Lispro 100 Unit/Ml 3 Ml Kwikpen) 0 unit SUBCUT QIDACANDBED [facility]; Protocol Last Admin: 02/19/21 13:05 Dose: 4 units Documented by: Lorazepam (Lorazepam 2 Mg/Ml Sdv) 0.5 mg IVPUSH Q4H PRN PRN Reason: Nausea/Vomiting Last Admin: 02/17/21 22:21 Dose: 0.5 mg Documented by: Lorazepam (Lorazepam 0.5 Mg Tab) 0.5 mg PO Q4H PRN PRN Reason: Anxiety Last Admin: 02/18/21 21:19 Dose: 0.5 mg Documented by: Magnesium Hydroxide (Magnesium Hydroxide 400 Mg/5 Ml Susp 30 Ml Cup) 30 ml PO Q12H PRN PRN Reason: Constipation Melatonin (Melatonin 3 Mg Tab) 9 mg PO BEDTIME PRN PRN Reason: Sleep Last Admin: 02/17/21 21:28 Dose: 9 mg Documented by: Metoprolol Tartrate (Metoprolol Tartrate 25 Mg Tab) 25 mg PO BID [facility] Last Admin: 02/19/21 10:04 Dose: 25 mg Documented by: Morphine Sulfate (Morphine 2 Mg/Ml Syringe) 2 mg IVPUSH Q2H PRN PRN Reason: Pain (severe 7-10) Ondansetron HCl (Ondansetron 4 Mg/2 Ml Sdv) 4 mg IV Q6H PRN PRN Reason: Nausea/Vomiting Last Admin: 02/18/21 11:55 Dose: 4 mg Documented by: Ondansetron HCl (Ondansetron 4 Mg Tab.Dis) 4 mg PO Q6H PRN PRN Reason: Nausea able to take PO Oxycodone HCl (Oxycodone 5 Mg Tab) 5 - 10 mg PO Q4H PRN PRN Reason: Pain Pantoprazole Sodium (Pantoprazole 40 Mg Vial) 40 mg IV Q12H [facility] Last Admin: 02/19/21 02:09 Dose: 40 mg Documented by: Senna/Docusate Sodium (Docusate Sodium/Sennosides 50-8.6 Mg Tab) 1 tab PO BID PRN PRN Reason: Constipation Discontinued Medications Aminophylline (Aminophylline 500 Mg/20 Ml Sdv) 125 mg IVPUSH ONETIME ONE Stop: 02/19/21 12:20 Last Admin: 02/19/21 12:22 Dose: 125 mg Documented by: Fentanyl (Fentanyl 100 Mcg/2 Ml Sdv) Confirm Administered Dose 100 mcg .ROUTE .STK-MED ONE Stop: 02/19/21 07:38 Sodium Chloride (Normal Saline) 1,000 mls @ 200 mls/hr IV ASDIRECTED [facility] Last Admin: 02/16/21 13:26 Dose: 200 mls/hr Documented by: Sodium Chloride (Normal Saline) 1,000 mls @ 125 mls/hr IV ASDIRECTED [facility] Last Admin: 02/17/21 04:49 Dose: 125 mls/hr Documented by: Ferric Sodium Gluconate Complex 125 mg/ Sodium Chloride 110 mls @ 100 mls/hr IV ONETIME ONE Stop: 02/17/21 12:05 Last Admin: 02/17/21 10:53 Dose: 100 mls/hr Documented by: Pantoprazole Sodium (Pantoprazole 40 Mg Vial) 80 mg IVPUSH .BOLUS [facility] Pantoprazole Sodium (Pantoprazole 40 Mg Vial) 80 mg IVPUSH .BOLUS ONE Stop: 02/16/21 15:01 Last Admin: 02/16/21 14:54 Dose: 80 mg Documented by: Propofol (Propofol 200 Mg/20 Ml Sdv) Confirm Administered Dose 200 mg .ROUTE .STK-MED ONE Stop: 02/16/21 15:22 Propofol (Propofol 200 Mg/20 Ml Sdv) Confirm Administered Dose 200 mg .ROUTE .STK-MED ONE Stop: 02/19/21 07:38 Regadenoson (Regadenoson 0.4 Mg/5 Ml Syringe) 0.4 mg IVPUSH ONETIME ONE Stop: 02/19/21 11:49 Last Admin: 02/19/21 12:11 Dose: 0.4 mg Documented by: - Exam Quality Assessment: No: Supplemental Oxygen General: Alert, Oriented, Cooperative, No Acute Distress Lungs: Normal Respiratory Effort Cardiovascular: Regular Rate, Regular Rhythm GI/Abdominal Exam: Soft, No Distention Extremities: No Pedal Edema Skin: Warm, Dry Psy/Mental Status: Alert, Normal Affect - Patient Data Lab Results Last 24 hrs: Laboratory Results - last 24 hr 02/18/21 02/18/21 02/18/21 Range/Units 17:06 17:29 20:40 WBC (4.5-11.0) K/uL RBC (3.30-5.50) M/uL Hgb 7.5 L (12.0-15.0) g/dL Hct (36.0-48.0) % MCV (80-98) fL MCH (27-31) pg MCHC (32-36) % Plt Count (150-400) K/uL Sodium (140-148) mmol/L Potassium (3.6-5.2) mmol/L Chloride (100-108) mmol/L Carbon Dioxide (21-32) mmol/L Anion Gap (5.0-14.0) mmol/L BUN (7-18) mg/dL Creatinine (0.6-1.0) mg/dL Est Cr Clr Drug Dosing mL/min Estimated GFR (MDRD) (>60) Glucose (74-106) mg/dL POC Glucose 354 H 363 H (74-106) mg/dL Calcium (8.5-10.1) mg/dL 02/19/21 02/19/21 02/19/21 Range/Units 04:45 04:45 07:04 WBC 3.8 L (4.5-11.0) K/uL RBC 2.34 L (3.30-5.50) M/uL Hgb 7.4 L (12.0-15.0) g/dL Hct 23.1 L (36.0-48.0) % MCV 99 H (80-98) fL MCH 32 H (27-31) pg MCHC 32 (32-36) % Plt Count 90 L (150-400) K/uL Sodium 142 (140-148) mmol/L Potassium 4.5 (3.6-5.2) mmol/L Chloride 108 (100-108) mmol/L Carbon Dioxide 24 (21-32) mmol/L Anion Gap 10.5 (5.0-14.0) mmol/L BUN 37 H (7-18) mg/dL Creatinine 1.5 H (0.6-1.0) mg/dL Est Cr Clr Drug Dosing 30.46 mL/min Estimated GFR (MDRD) 34 L (>60) Glucose 230 H (74-106) mg/dL POC Glucose 223 H (74-106) mg/dL Calcium 8.3 L (8.5-10.1) mg/dL 02/19/21 Range/Units 12:58 WBC (4.5-11.0) K/uL RBC (3.30-5.50) M/uL Hgb (12.0-15.0) g/dL Hct (36.0-48.0) % MCV (80-98) fL MCH (27-31) pg MCHC (32-36) % Plt Count (150-400) K/uL Sodium (140-148) mmol/L Potassium (3.6-5.2) mmol/L Chloride (100-108) mmol/L Carbon Dioxide (21-32) mmol/L Anion Gap (5.0-14.0) mmol/L BUN (7-18) mg/dL Creatinine (0.6-1.0) mg/dL Est Cr Clr Drug Dosing mL/min Estimated GFR (MDRD) (>60) Glucose (74-106) mg/dL POC Glucose 222 H (74-106) mg/dL Calcium (8.5-10.1) mg/dL Result Diagrams: 02/19/21 04:45 02/19/21 04:45 Imaging Impressions Last 24 hrs: Images from stress test are still pending. EKG portion of the stress test was unremarkable. Sepsis Event Note - Evaluation Sepsis Screening Result: Possible Sepsis Risk - Focused Exam Vital Signs: Vital Signs Temp Pulse Pulse Resp BP BP BP 02/19/21 12:25 36.8 C 02/19/21 12:23 84 16 130/61 02/19/21 11:51 77 16 116/53 L 02/19/21 10:04 86 127/62 02/19/21 10:00 85 12 127/62 02/19/21 09:45 88 12 142/62 H 02/19/21 09:31 86 13 131/61 02/19/21 09:17 87 12 135/62 02/19/21 09:00 36.7 C 86 12 124/63 02/19/21 08:41 14 141/73 H 02/19/21 08:40 36.7 C 86 15 02/19/21 08:35 86 15 124/66 02/19/21 08:30 85 12 119/59 L 02/19/21 08:25 82 12 99/59 L 02/19/21 08:20 36.9 C 81 12 109/51 L 02/19/21 08:00 36.8 C 86 14 138/55 L 02/19/21 06:00 80 13 02/19/21 04:00 36.7 C 75 14 02/19/21 02:00 77 13 BP Pulse Ox 02/19/21 12:25 02/19/21 12:23 94 L 02/19/21 11:51 94 L 02/19/21 10:04 02/19/21 10:00 96 02/19/21 09:45 99 02/19/21 09:31 98 02/19/21 09:17 99 02/19/21 09:00 92 L 02/19/21 08:41 98 02/19/21 08:40 98 02/19/21 08:35 97 02/19/21 08:30 99 02/19/21 08:25 98 02/19/21 08:20 97 02/19/21 08:00 96 02/19/21 06:00 103/33 L 96 02/19/21 04:00 107/38 L 97 02/19/21 02:00 117/52 L 98 - Problem List & Annotations (1) Esophageal varices with hemorrhage SNOMED Code(s): 27550869, 40048129 Code(s): I85.01 - ESOPHAGEAL VARICES WITH BLEEDING Status: Acute Current Visit: Yes Qualifiers: Esophageal varices type: secondary Qualified Code(s): I85.11 - Secondary esophageal varices with bleeding (2) GI (gastrointestinal bleed) SNOMED Code(s): 76567601 Code(s): K92.2 - GASTROINTESTINAL HEMORRHAGE, UNSPECIFIED Status: Acute Current Visit: Yes Qualifiers: GI bleed type/associated pathology: melena Qualified Code(s): K92.1 - Melena (3) Blood loss anemia SNOMED Code(s): 362761915 Code(s): D50.0 - IRON DEFICIENCY ANEMIA SECONDARY TO BLOOD LOSS (CHRONIC) Status: Acute Current Visit: Yes (4) Abdominal pain SNOMED Code(s): 39579428 Code(s): R10.9 - UNSPECIFIED ABDOMINAL PAIN Status: Acute Current Visit: Yes Qualifiers: Abdominal location: generalized Qualified Code(s): R10.84 - Generalized abdominal pain - Problem List Review Problem List Initiated/Reviewed/Updated: Yes - My Orders Last 24 Hours: My Active Orders 02/18/21 16:17 Dextrose 50% in Water 50 ml IVPUSH ASDIRECTED PRN Glucagon,Human Recombinant [GlucaGen] 1 mg IM ASDIRECTED PRN 02/18/21 Dinner NPO After Midnight [Nothing per Oral After Midnight Diet] [DIET] 02/18/21 21:00 Insulin Glarg,Human.Rec.Analog [LantUS Solostar] 30 units SUBCUT BEDTIME 02/19/21 10:00 Myocardial Perf Spect Multi [NM] Routine 02/20/21 07:00 Abdomen Ltd [US] Routine 02/20/21 07:30 GLUCOSE POC LAB TO COLLECT JPM [POC] QIDACANDBED 02/20/21 11:30 GLUCOSE POC LAB TO COLLECT JPM [POC] QIDACANDBED 02/20/21 16:30 GLUCOSE POC LAB TO COLLECT JPM [POC] QIDACANDBED 02/20/21 21:00 GLUCOSE POC LAB TO COLLECT JPM [POC] QIDACANDBED 02/21/21 07:30 GLUCOSE POC LAB TO COLLECT JPM [POC] QIDACANDBED 02/21/21 11:30 GLUCOSE POC LAB TO COLLECT JPM [POC] QIDACANDBED 02/21/21 16:30 GLUCOSE POC LAB TO COLLECT JPM [POC] QIDACANDBED 02/21/21 21:00 GLUCOSE POC LAB TO COLLECT JPM [POC] QIDACANDBED - Plan Plan:: ASSESSMENT AND PLAN - Acute gastrointestinal hemorrhage-complicated by anemia due to blood loss likely secondary to esophageal varices with ulceration. Bleeding seems to have stopped. Hemoglobin is stable. Patient is tired but otherwise doing okay. Abdominal pain is minimal. -Twice daily proton pump inhibitor -Surgical consultation appreciated -Saline lock IV -Symptomatic management of pain and or nausea -Hemoglobin in the morning Esophageal varices-noted on EGD today. Plan to evaluate liver architecture tomorrow morning. Patient does not report alcohol use. If she does have cirrhosis it could be related to a fatty liver and/or diabetes. -Abdominal ultrasound in the morning Hyperkalemia-improved with fluids. Blood pressure still on the low side. -Hold CAYETANO inhibitor -Recheck in the morning Coronary artery disease-she may have what sounds like stable angina versus upper gastrointestinal pain. Stress test still pending. -Continue medical management including aspirin, beta-xuan and statin -Follow-up nuclear medicine images Insulin-dependent diabetes mellitus-well controlled by history. Sugars were moderately elevated overnight after the insulin pump was stopped but are little better today. -Medium dose sliding scale insulin -Partial dose of long-acting insulin at bedtime Maintenance issues - -DVT prophylaxis-mechanical with active hemorrhage -GI prophylaxis-PPI as above -Nutrition-full liquids, advance as tolerated Disposition -I anticipate discharge home after the hospital stay Primary care physician - Dr Frances Laura M.D.
--- NOTE | 2021-02-19 14:52 | CRLNM ---
For Patients: As a result of the Century Cures Act, medical imaging exams and procedure reports are released immediately into your electronic medical record. You may view this report before your referring provider. If you have questions, please contact your health care provider. Indication: Chest pain Technique: Gated SPECT with wall motion and ejection fraction Stress: Pharmacologic Lexiscan Does stress/rest: 29.5 millicurie/11.0 millicurie technetium 99 M labeled tetrofosmin has been given intravenously Comparison: 10/09/2010 Findings: There is good uptake of the radiotracer by the left ventricle. There is no left ventricular dilatation. There is attenuation identified in the mid and basal inferior wall of left ventricle which is worse on rest than stress. Findings are most compatible with soft tissue attenuation but a nontransmural infarct is not excluded. No other significant perfusion abnormalities are noted. Gated images demonstrate left ventricular ejection fraction calculated at 60 1 percent. There is no focal wall motion abnormality. Impression: 1. No evidence for significant myocardial ischemia 2. Fixed attenuation is identified inferiorly consistent with nontransmural infarct or soft tissue/diaphragm attenuation 3. Normal left ventricular ejection fraction is identified at 61 percent. No focal wall motion abnormality is noted. Dictated by Anders Carpenter MD @ 02/19/2021 2:51:[address] Anders Carpenter @ Feb 19 2021 2:51PM
[2021-02-19] MEDS: Pantoprazole 40 MG Tab.CR PO SCH (16:39)
[2021-02-19] MEDS: Insulin Glargine,Human Rec. Analog 100 Units/ML 3 ML Pen SUBCUT SCH (20:55)
[2021-02-20] MEDS: Pantoprazole 40 MG Tab.CR PO SCH (07:41)
[2021-02-20] MEDS: Insulin Lispro 100 Unit/ML 3 ML KwikPen SUBCUT SCH ×4 (07:41→12:11)
[2021-02-20 07:50] VITALS: BP 116/47; PULSE 79
--- NOTE | 2021-02-20 07:53 | OR ---
DATE OF PROCEDURE: 02/19/2021 SURGEON: Eliel Aragon MD PROCEDURE: Esophagogastroduodenoscopy with esophageal banding. FINDINGS: Prominent esophageal varices, one small area which is most likely the etiology of the bleeding source. COMPLICATION: None. CANVAS WORKER: None. ANESTHESIA: MAC. PREOPERATIVE DIAGNOSIS: Epigastric pain/anemia. POSTOPERATIVE DIAGNOSIS: Epigastric pain/anemia. PROCEDURE IN DETAIL: The patient was placed in left lateral decubitus position. The EGD scope was introduced and advanced into the stomach. During the previous EGD, there was a large amount of blood. This has noted to be significantly improved. No evidence of ulceration within the duodenum. No evidence of gastritis or ulceration of the stomach. At the GE junction, the patient has significant prominent varicosity, one had a small clot like area on it. This was subsequently banded without difficulty. The air was removed from the stomach. The esophagus was inspected without abnormality. The patient tolerated the procedure well. Eliel Aragon MD /[id number]
[2021-02-20] MEDS: Metoprolol Tartrate 25 MG Tab PO SCH (08:33)
[2021-02-20] MEDS: Aspirin 81 MG Tab.EC PO SCH (08:33)
--- NOTE | 2021-02-20 10:31 | US ---
Abdomen Ltd CLINICAL HISTORY: Evaluate for cirrhosis COMPARISON: None. TECHNIQUE: Real-time images were obtained through the right upper quadrant. FINDINGS: The liver is free of mass or biliary dilatation. There is increased hepatic echogenicity. The gallbladder has been removed. The common bile duct measures 8 mm. The pancreas is free of masses seen. The tail is obscured. The right kidney measures 10.3 x 5.6 x 4.5 cm. Cortical thickness is 1.1 cm.. The IVC is normal. IMPRESSION: Increased hepatic echogenicity likely represent some fatty infiltration.
--- NOTE | 2021-02-20 12:00 | PCM.DCSUM1 ---
Discharge Summary - Hospital Course Brief History: 70-year-old female with insulin-dependent diabetes mellitus, coronary artery disease and history of colon cancer who presented with multiple episodes of large-volume melena. She was admitted for management of upper gastrointestinal hemorrhage complicated by anemia due to blood loss. Diagnosis: Stroke: No - Discharge Data Discharge Date: 02/20/21 Discharge Disposition: Home, Self-Care 01 Condition: Good - Referral to Home Health Primary Care Physician: Octaviano Daniels MD - Discharge Diagnosis/Problem(s) (1) Esophageal varices with hemorrhage SNOMED Code(s): 25842599, 00611305 ICD Code: I85.01 - ESOPHAGEAL VARICES WITH BLEEDING Status: Acute Current Visit: Yes Qualifiers: Esophageal varices type: secondary Qualified Code(s): I85.11 - Secondary esophageal varices with bleeding (2) GI (gastrointestinal bleed) SNOMED Code(s): 89663315 ICD Code: K92.2 - GASTROINTESTINAL HEMORRHAGE, UNSPECIFIED Status: Acute Current Visit: Yes Qualifiers: GI bleed type/associated pathology: melena Qualified Code(s): K92.1 - Melena (3) Blood loss anemia SNOMED Code(s): 398736489 ICD Code: D50.0 - IRON DEFICIENCY ANEMIA SECONDARY TO BLOOD LOSS (CHRONIC) Status: Acute Current Visit: Yes (4) Abdominal pain SNOMED Code(s): 51565095 ICD Code: R10.9 - UNSPECIFIED ABDOMINAL PAIN Status: Acute Current Visit: Yes Qualifiers: Abdominal location: generalized Qualified Code(s): R10.84 - Generalized abdominal pain (5) Type 2 diabetes mellitus SNOMED Code(s): 04744629 ICD Code: E11.9 - TYPE 2 DIABETES MELLITUS WITHOUT COMPLICATIONS Status: Chronic Current Visit: No Qualifiers: Diabetes mellitus snf insulin use: with snf use Diabetes mellitus complication status: with other specified complication Qualified Code(s): E11.69 - Type 2 diabetes mellitus with other specified complication; Z79.4 - USP (current) use of insulin (6) History of colon cancer SNOMED Code(s): 507551364 ICD Code: Z85.038 - PERSONAL HISTORY OF MALIGNANT NEOPLASM OF LARGE INTESTINE Status: Chronic Current Visit: No (7) CAD (coronary artery disease) SNOMED Code(s): 32131413 ICD Code: I25.10 - ATHSCL HEART DISEASE OF [place] CORONARY ARTERY W/O ANG PCTRS Status: Chronic Current Visit: No Qualifiers: Coronary Disease-Associated Artery/Lesion type: [place] artery [place] vs. transplanted heart: [place] heart Associated angina: without angina Qualified Code(s): I25.10 - Atherosclerotic heart disease of [place] coronary artery without angina pectoris - Patient Summary/Data Consults: Consultations 02/16/21 14:30 Consult to Physician [CONS] Routine Consulting Provider: Eliel Aragon Call Completed to Consulting Physician: Yes Reason for Consult: upper GI hemorrhage Person Notified: RW Date Notified: 02/16/21 Special Instructions: egd for upper GI bleed Hospital Course: Karin presented to the emergency room with several episodes of large-volume melena as well as epigastric abdominal pain and reported exertional chest pain over the past several weeks. Work-up in the emergency room did fortunately reveal stable vital signs. Her hemoglobin was 7.4. Upper gastrointestinal hemorrhage was suspected. Given the quantity of blood that she is lost as well as the suspected angina story we did elect to transfuse 1 unit of blood at the time of admission. The operating room was available at the time of admission so the patient went back and had upper endoscopy performed by Dr. Aragon. Unfortunately there was a large amount of blood and food in the stomach so investigation was very limited. The patient was transferred to the intensive care unit and placed on IV fluids as well as IV proton pump inhibitor. Serial hemoglobin levels showed initial rise but then stability after that. The melena tapered off and eventually stopped. The patient remained stable for the next couple of days. We did plan to perform a Lexiscan stress test to evaluate her exertional chest pain but this had to be delayed 2 days because of the unavailability of nuclear medicine. This was eventually performed on February 19. Fortunately this did not show any evidence for significant ischemia or coronary artery obstruction. She had a repeat EGD on February 19 as well. This showed that the old blood and food had passed through the stomach. Some esophageal varices were identified and one of them had an ulceration. This was likely the source of bleeding. This esophageal varix was banded without complication. Patient remained stable with no significant issues overnight following the procedure. On the morning of discharge she did have an abdominal ultrasound to evaluate her liver. There was some evidence for fatty infiltration but no evidence for cirrhosis. She is having some mild residual abdominal pain but overall doing well. Hemoglobin has remained stable and the evidence for bleeding seems to have stopped. She is stable and safe for discharge home at this time. She will have early follow-up with primary care. She did go home with a prescription for pantoprazole which she will take twice daily for 1 month and then once daily for 2 months. - Patient Instructions Diet: Diabetic Diet Diet, Other: soft and bland foods for the next few days Activity: As Tolerated Driving: Do Not Drive (if taking pain pills ) Showering/Bathing: May Shower Notify Provider of: Fever, Increased Pain Other/Special Instructions: 1. You were in the hospital for management of upper gastrointestinal bleeding caused by an ulcer on one of your esophageal varices. This was treated with acid blocking medications as well as banding of the bleeding blood vessel. There is no evidence for ongoing bleeding at this time. I do recommend that you use a proton pump inhibitor twice daily for 1 month and then once daily for 2 months to help the ulcer heal up further. You should eat soft and bland foods for the next several days before reintroducing your normal foods. 2. Continue your usual home medications as previously prescribed. 3. Follow-up with your primary care physician and staff development educator as scheduled. 4. Please seek medical attention if you develop fever greater than 101, severe abdominal pain or persistent vomiting. - Discharge Plan *PRESCRIPTION DRUG MONITORING PROGRAM REVIEWED*: Not Applicable *COPY OF PRESCRIPTION DRUG MONITORING REPORT IN PATIENT LEIGHA: Not Applicable Prescriptions/Med Rec: oxyCODONE 5 mg PO Q4H PRN #20 tablet PRN Reason: Pain Pantoprazole [ProTONIX] 40 mg PO BIDAC #60 tab.cr Home Medications: Home Meds *[place] 3-6-9 1 tab PO DAILY 08/07/13 [History] *Vitamin B-12 2,000 mcg PO DAILY 08/07/13 [History] *Vitamin D3 2,000 units PO DAILY 08/07/13 [History] *Women's Multivitamin 1 tab PO DAILY 08/07/13 [History] Furosemide [Lasix] 20 mg PO DAILY 08/07/13 [History] Lisinopril 5 mg PO DAILY 08/07/13 [History] Metoprolol Tartrate 25 mg PO BID 08/07/13 [History] Simvastatin [Zocor] 5 mg PO BEDTIME 08/07/13 [History] Insulin Aspart [NovoLOG] 0 unit SUBCUT ASDIRECTED 08/13/15 [History] Aspirin [Halfprin] 81 mg PO DAILY 02/16/21 [History] Nitroglycerin [Nitrostat] 0.4 mg SL ASDIRECTED PRN 02/16/21 [History] Pantoprazole [ProTONIX] 40 mg PO BIDAC #60 tab.cr 02/20/21 [Rx] oxyCODONE 5 mg PO Q4H PRN #20 tablet 02/20/21 [Rx] Oxygen Therapy Mode: Room Air Patient Handouts: Gastrointestinal Bleeding, [id number], Pantoprazole tablets Referrals: Gisell Nielson RN [Registered Nurse] - 03/09/21 9:30 am (Your appointment with Gisell is at the [facility]. Please arrive 15 minutes early to register for your appointment.) Octaviano Daniels MD [Primary Care Provider] - 02/26/21 1:40 pm (Please arrive 15 minutes early to register for your appointment.) - Discharge Summary/Plan Comment DC Time >30 min.: No Total # of Minutes for Discharge Time: 25 - Patient Data Vitals - Most Recent: Last Vital Signs Temp 36.8 C 02/20/21 07:49 Pulse 79 02/20/21 08:33 Resp 18 02/20/21 07:49 BP 116/47 L 02/20/21 08:33 Pulse Ox 96 02/20/21 08:04 Weight - Most Recent: 97.522 kg I&O - Last 24 hours: Intake & Output 02/19/21 02/20/21 02/20/21 22:59 06:59 14:59 Intake Total 200 Output Total 400 525 Balance -200 -525 Lab Results - Last 24 hrs: Laboratory Results - last 24 hr 02/19/21 02/19/21 02/19/21 Range/Units 12:58 17:15 20:46 POC Glucose 222 H 347 H 321 H (74-106) mg/dL 02/20/21 02/20/21 Range/Units 07:37 11:10 POC Glucose 240 H 253 H (74-106) mg/dL Med Orders - Current: Current Medications Acetaminophen (Acetaminophen 325 Mg Tab) 650 mg PO Q4H PRN PRN Reason: Pain (Mild 1-3)/fever Last Admin: 02/18/21 17:20 Dose: 650 mg Documented by: Albuterol (Albuterol 0.083% 2.5 Mg/3 Ml Neb Soln) 2.5 mg NEB Q4H PRN PRN Reason: Shortness Of Breath/wheezing Aspirin (Aspirin 81 Mg Tab.Ec) 81 mg PO DAILY YOVANY Last Admin: 02/20/21 08:33 Dose: 81 mg Documented by: Calcium Carbonate/Glycine (Calcium Carbonate 500 Mg Tab.Chew) 1,000 mg PO Q2H PRN PRN Reason: Indigestion Last Admin: 02/17/21 00:36 Dose: 1,000 mg Documented by: Dextrose/Water (50% Dextrose In Water 50 Ml Syringe) 50 ml IVPUSH ASDIRECTED PRN PRN Reason: Hypoglycemia Glucagon (Glucagon,Human Recombinant 1 Mg Vial) 1 mg IM ASDIRECTED PRN PRN Reason: Hypoglycemia Insulin Glargine (Insulin Glargine,Human Rec. Analog 100 Units/Ml 3 Ml Pen) 30 units SUBCUT BEDTIME [facility] Last Admin: 02/19/21 20:55 Dose: 30 units Documented by: Insulin Human Lispro (Insulin Lispro 100 Unit/Ml 3 Ml Kwikpen) 0 unit SUBCUT QIDACANDBED [facility]; Protocol Last Admin: 02/20/21 11:12 Dose: Not Given Documented by: Insulin Human Lispro (Insulin Lispro 100 Unit/Ml 3 Ml Kwikpen) 10 unit SUBCUT TIDMEALS [facility] Last Admin: 02/20/21 08:40 Dose: 10 units Documented by: Lorazepam (Lorazepam 2 Mg/Ml Sdv) 0.5 mg IVPUSH Q4H PRN PRN Reason: Nausea/Vomiting Last Admin: 02/17/21 22:21 Dose: 0.5 mg Documented by: Lorazepam (Lorazepam 0.5 Mg Tab) 0.5 mg PO Q4H PRN PRN Reason: Anxiety Last Admin: 02/18/21 21:19 Dose: 0.5 mg Documented by: Magnesium Hydroxide (Magnesium Hydroxide 400 Mg/5 Ml Susp 30 Ml Cup) 30 ml PO Q12H PRN PRN Reason: Constipation Melatonin (Melatonin 3 Mg Tab) 9 mg PO BEDTIME PRN PRN Reason: Sleep Last Admin: 02/17/21 21:28 Dose: 9 mg Documented by: Metoprolol Tartrate (Metoprolol Tartrate 25 Mg Tab) 25 mg PO BID [facility] Last Admin: 02/20/21 08:33 Dose: 25 mg Documented by: Morphine Sulfate (Morphine 2 Mg/Ml Syringe) 2 mg IVPUSH Q2H PRN PRN Reason: Pain (severe 7-10) Last Admin: 02/20/21 11:04 Dose: 2 mg Documented by: Ondansetron HCl (Ondansetron 4 Mg/2 Ml Sdv) 4 mg IV Q6H PRN PRN Reason: Nausea/Vomiting Last Admin: 02/18/21 11:55 Dose: 4 mg Documented by: Ondansetron HCl (Ondansetron 4 Mg Tab.Dis) 4 mg PO Q6H PRN PRN Reason: Nausea able to take PO Oxycodone HCl (Oxycodone 5 Mg Tab) 5 - 10 mg PO Q4H PRN PRN Reason: Pain Pantoprazole Sodium (Pantoprazole 40 Mg Tab.Cr) [facility] Last Admin: 02/20/21 07:41 Dose: 40 mg Documented by: Senna/Docusate Sodium (Docusate Sodium/Sennosides 50-8.6 Mg Tab) 1 tab PO BID PRN PRN Reason: Constipation Discontinued Medications Aminophylline (Aminophylline 500 Mg/20 Ml Sdv) 125 mg IVPUSH ONETIME ONE Stop: 02/19/21 12:20 Last Admin: 02/19/21 12:22 Dose: 125 mg Documented by: Fentanyl (Fentanyl 100 Mcg/2 Ml Sdv) Confirm Administered Dose 100 mcg .ROUTE .STK-MED ONE Stop: 02/19/21 07:38 Sodium Chloride (Normal Saline) 1,000 mls @ 200 mls/hr IV ASDIRECTED [facility] Last Admin: 02/16/21 13:26 Dose: 200 mls/hr Documented by: Sodium Chloride (Normal Saline) 1,000 mls @ 125 mls/hr IV ASDIRECTED [facility] Last Admin: 02/17/21 04:49 Dose: 125 mls/hr Documented by: Ferric Sodium Gluconate Complex 125 mg/ Sodium Chloride 110 mls @ 100 mls/hr IV ONETIME ONE Stop: 02/17/21 12:05 Last Admin: 02/17/21 10:53 Dose: 100 mls/hr Documented by: Pantoprazole Sodium (Pantoprazole 40 Mg Vial) 80 mg IVPUSH .BOLUS YOVANY Pantoprazole Sodium (Pantoprazole 40 Mg Vial) 40 mg IV Q12H YOVANY Last Admin: 02/19/21 02:09 Dose: 40 mg Documented by: Pantoprazole Sodium (Pantoprazole 40 Mg Vial) 80 mg IVPUSH .BOLUS ONE Stop: 02/16/21 15:01 Last Admin: 02/16/21 14:54 Dose: 80 mg Documented by: Propofol (Propofol 200 Mg/20 Ml Sdv) Confirm Administered Dose 200 mg .ROUTE .STK-MED ONE Stop: 02/16/21 15:22 Propofol (Propofol 200 Mg/20 Ml Sdv) Confirm Administered Dose 200 mg .ROUTE .STK-MED ONE Stop: 02/19/21 07:38 Regadenoson (Regadenoson 0.4 Mg/5 Ml Syringe) 0.4 mg IVPUSH ONETIME ONE Stop: 02/19/21 11:49 Last Admin: 02/19/21 12:11 Dose: 0.4 mg Documented by: *Q Meaningful Use (DIS) - VTE *Q VTE Pharmacological Contraindications *Q: Active Hemorrhage
== END 2021-02-20 13:00 | disposition home or self-care (01) | DRG 380 ==
LOC: JP.ED 11:45 → JP.ICU 14:15
PROVIDERS: ADMIT Internal Medicine; ATTEND Internal Medicine
PROC: 0DJ08ZZ Inspection of Upper Intestinal Tract, Via Natural or Artificial Opening Endoscopic (ICD-10-PCS; 2021-02-16)
PROC: 06L38CZ Occlusion of Esophageal Vein with Extraluminal Device, Via Natural or Artificial Opening Endoscopic (ICD-10-PCS; principal; 2021-02-19)
DX: K22.11 Ulcer of esophagus with bleeding (principal); I85.11 Secondary esophageal varices with bleeding; D62 Acute posthemorrhagic anemia; K92.1 Melena; D50.0 Iron deficiency anemia secondary to blood loss (chronic); K76.0 Fatty (change of) liver, not elsewhere classified; R10.84 Generalized abdominal pain; E87.5 Hyperkalemia; I25.10 Atherosclerotic heart disease of native coronary artery without angina pectoris; I25.2 Old myocardial infarction; Z95.5 Presence of coronary angioplasty implant and graft; F32.9 Major depressive disorder, single episode, unspecified; E11.9 Type 2 diabetes mellitus without complications; Z85.3 Personal history of malignant neoplasm of breast; Z85.038 Personal history of other malignant neoplasm of large intestine; Z92.21 Personal history of antineoplastic chemotherapy; Z88.1 Allergy status to other antibiotic agents; Z98.890 Other specified postprocedural states; Z90.49 Acquired absence of other specified parts of digestive tract; Z90.710 Acquired absence of both cervix and uterus; R07.89 Other chest pain; Z88.8 Allergy status to other drugs, medicaments and biological substances; Z79.82 Long term (current) use of aspirin; Z79.4 Long term (current) use of insulin; Z79.899 Other long term (current) drug therapy
CPT/HCPCS: 36415; 71045 ×2; 80053; 82272; 83605; 83690; 84484; 85025; 85379; 86850; 86900; 86901; 86920; 86922; 99285; J7030; 36430; 76705; 76705-26; 78452; 80048; 82947; 83735; 85018; 85027; 93017; A9270-GY; A9500; C9113; J0280; J1815; J1815-GY; J2060; J2270; J2405; J2704; J2785; J2916; J3010; P9016

== ENCOUNTER 2021-03-23 23:48 | Emergency (ER) | payer MEDICARE, BC ==
[2021-03-24] MEDS ORDERED: Lactated Ringers 1,000 ML IV ONE (00:16)
[2021-03-24] MEDS ORDERED: Pantoprazole 40 MG Vial IVPUSH STA (00:18)
[2021-03-24] MEDS ORDERED: Metoclopramide 10 MG/2 ML SDV IVPUSH ONE (00:26)
[2021-03-24] MEDS ORDERED: Famotidine 20 MG/2 ML SDV IVPUSH ONE (00:26)
[2021-03-24] MEDS ORDERED: Sodium Chloride 0.9% 1,000 ML IV SCH (00:30)
--- NOTE | 2021-03-24 00:34 | EDM.PDOC ---
ED HPI GENERAL MEDICAL PROBLEM - General Chief Complaint: Gastrointestinal Problem Stated Complaint: MEDICAL [facility] Time Seen by Provider: 03/24/21 00:15 Source of Information: Reports: Patient, Old Records, RN History Limitations: Reports: Other (poor hearing, poor historian) - History of Present Illness INITIAL COMMENTS - FREE TEXT/NARRATIVE: 70 yo female presents via EMS after onset of vomiting of black emesis that began about 2 hrs ago. Has vomited about 6 times. No black or bloody stools. Has been on proton pump inhibitors constantly. Her doctor is Dr. Daniels. Was just here in February with an UGI bleed and did receive blood at that time. Patient says Dr. Daniels put her back on ASA right after she got out of the hospital last time. He told her if she started bleeding again to go right to the hospital, but she waited at least 2 hrs after onset to call EMS. Has a pHx of esophageal varices. Onset: Today, Sudden Onset Date: 03/23/21 Onset Time: 10:20 Duration: Hour(s): (2), Constant Location: Reports: Abdomen Quality: Reports: Burning Severity: Moderate Improves with: Reports: None Worsens with: Reports: Other (unknown) Context: Reports: Other (See HPI) Associated Symptoms: Reports: Nausea/Vomiting Treatments FIN[employer] INS[employer]OVEMENT [employer]SEM[employer]: Reports: Other (see below) (none) abd pain Pain Score (Numeric/FACES): 5 - Related Data Allergies Allergy/AdvReac Type Severity Reaction Status Date / Time cephalexin [Cephalexin] Allergy Cannot Verified 03/24/21 00:28 Remember Cephalosporins Allergy Cannot Verified 03/24/21 00:28 Remember Corticosteroids Allergy Cannot Verified 03/24/21 00:28 (Glucocorticoids) Remember paclitaxel Allergy Cannot Verified 03/24/21 00:28 Remember Home Meds: Home Meds *[place] 3-6-9 1 tab PO DAILY 08/07/13 [History] *Vitamin B-12 2,000 mcg PO DAILY 08/07/13 [History] *Vitamin D3 2,000 units PO DAILY 08/07/13 [History] *Women's Multivitamin 1 tab PO DAILY 08/07/13 [History] Furosemide [Lasix] 20 mg PO DAILY 08/07/13 [History] Lisinopril 5 mg PO DAILY 08/07/13 [History] Metoprolol Tartrate 25 mg PO BID 08/07/13 [History] Simvastatin [Zocor] 5 mg PO BEDTIME 08/07/13 [History] Insulin Aspart [NovoLOG] 0 unit SUBCUT ASDIRECTED 08/13/15 [History] Aspirin [Halfprin] 81 mg PO DAILY 02/16/21 [History] Nitroglycerin [Nitrostat] 0.4 mg SL ASDIRECTED PRN 02/16/21 [History] Pantoprazole [ProTONIX] 40 mg PO BIDAC #60 tab.cr 02/20/21 [Rx] oxyCODONE 5 mg PO Q4H PRN #20 tablet 02/20/21 [Rx] Past Medical History Cardiovascular History: Reports: CAD, MT, Stents Respiratory History: Reports: Other (See Below) Other Respiratory History: had reaction to chem on had dyspnea Gastrointestinal History: Reports: None Genitourinary History: Reports: None 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: Psychiatric History: Reports: Depression Endocrine/Metabolic History: Reports: Diabetes, Type II Insulin Pump Model and Finisher Plate: ITegris Oncologic (Cancer) History: Reports: Breast, Colon - Infectious Disease History Infectious Disease History: Reports: Chicken Pox, Measles - Past Surgical History HEENT Surgical History: Reports: Eye Surgery, Other (See Below) Other HEENT Surgeries/Procedures: nasal polypectomy Cardiovascular Surgical History: Reports: Coronary Artery Stent GI Surgical History: Reports: Appendectomy, Cholecystectomy, Colon Female Surgical History: Reports: Hysterectomy Oncologic Surgical History: Reports: Mastectomy Social & Family History - Family History Cardiac: Reports: CAD - Tobacco Use Tobacco Use Status *Q: Never Tobacco User - Caffeine Use Caffeine Use: Reports: None - Recreational Drug Use Recreational Drug Use: No - Living Situation & Occupation Living situation: Reports: , with Spouse ED ROS GENERAL - Review of Systems Review Of Systems: See Below Constitutional: Reports: No Symptoms HEENT: Reports: No Symptoms Respiratory: Reports: No Symptoms Cardiovascular: Reports: Lightheadedness GI/Abdominal: Reports: Abdominal Pain, Hematemesis, Nausea, Vomiting. Denies: Black Stool, Bloody Stool : Reports: No Symptoms Musculoskeletal: Reports: No Symptoms Skin: Reports: No Symptoms Neurological: Reports: No Symptoms ED EXAM, GI/ABD - Physical Exam Exam: See Below Exam Limited By: No Limitations General Appearance: Alert, WD/WN, Mild Distress, Obese Eyes: Bilateral: Normal Appearance Ears: Normal External Exam, Normal Canal, Hearing Loss. No: Hearing Grossly Normal Nose: Normal Inspection, No Blood Throat/Mouth: Normal Inspection, Normal Lips, Normal Oropharynx, Normal Voice, No Airway Compromise Head: Atraumatic, Normocephalic Neck: Normal Inspection Respiratory/Chest: No Respiratory Distress, Lungs Clear, Normal Breath Sounds, No Accessory Muscle Use Cardiovascular: Regular Rate, Rhythm, No Edema GI/Abdominal Exam: Normal Bowel Sounds, Soft, No Distention, Tender (mid abdomen). No: Non-Tender Extremities: Normal Inspection Neurological: Alert, Oriented, CN II-XII Intact, Normal Cognition, No Motor/Sensory Deficits Psychiatric: Normal Affect, Normal Mood Course - Vital Signs Text/Narrative:: accepted by [facility], Dr. Lal, @ 0120h Last Recorded V/S: Last Vital Signs Temp 36.6 C 03/24/21 00:09 Pulse 80 03/24/21 01:20 Resp 13 03/24/21 01:20 BP 111/44 L 03/24/21 01:20 Pulse Ox 95 03/24/21 01:20 - Orders/Labs/Meds Orders: Active Orders 24 hr Category Date Time Status [place] Catheter Insertion [Insert Urinary Catheter] [OM. Care 03/24/21 01:00 Ordered PC] Q24H Urinary Catheter Assessment [RC] ASDIRECTED Care 03/24/21 00:58 Active CORONAVIRUS COVID-19 ROULA [MOLEC] Stat Lab 03/24/21 00:40 Ordered RED BLOOD CELLS LP [BBK] Stat Lab 03/24/21 00:18 Ordered TYPE AND SCREEN [BBK] Stat Lab 03/24/21 00:18 Ordered UA W/MICROSCOPIC [URIN] Stat Lab 03/24/21 00:18 Ordered Dextrose 50% in Water Med 03/24/21 00:59 Active 50 ml IVPUSH ASDIRECTED PRN Glucagon,Human Recombinant [GlucaGen] Med 03/24/21 00:59 Active 1 mg IM ASDIRECTED PRN Octreotide [SandoSTATIN] 500 mcg Med 03/24/21 01:00 Active Sodium Chloride 0.9% [Normal Saline] 497.5 ml IV Q10H Pantoprazole [ProTONIX IV] 80 mg Med 03/24/21 01:12 Active Sodium Chloride 0.9% [Normal Saline] 100 ml IV Q10H Sodium Chloride 0.9% [Normal Saline] 1,000 ml Med 03/24/21 00:30 Active IV ASDIRECTED cefTRIAXone [Rocephin] 1 gm Med 03/24/21 01:13 Active Sodium Chloride 0.9% [Normal Saline] 50 ml IV ONETIME Medication Orders Dextrose/Water (50% Dextrose In Water 50 Ml Syringe) 50 ml IVPUSH ASDIRECTED PRN PRN Reason: Hypoglycemia Glucagon (Glucagon,Human Recombinant 1 Mg Vial) 1 mg IM ASDIRECTED PRN PRN Reason: Hypoglycemia Sodium Chloride (Normal Saline) 1,000 mls @ 125 mls/hr IV ASDIRECTED YOVANY Octreotide Acetate 500 mcg/ (Sodium Chloride) 500 mls @ 50 mls/hr IV Q10H YOVANY Pantoprazole Sodium 80 mg/ (Sodium Chloride) 100 mls @ 10 mls/hr IV Q10H YOVANY Ceftriaxone Sodium 1 gm/ (Sodium Chloride) 50 mls @ 100 mls/hr IV ONETIME ONE Stop: 03/24/21 01:42 Labs: Laboratory Tests 03/24/21 03/24/21 03/24/21 Range/Units 00:01 00:01 00:01 WBC 7.0 (4.5-11.0) K/uL RBC 2.18 L (3.30-5.50) M/uL Hgb 7.1 L (12.0-15.0) g/dL Hct 21.0 L (36.0-48.0) % MCV 96 (80-98) fL MCH 33 H (27-31) pg MCHC 34 (32-36) % Plt Count 128 L (150-400) K/uL PT 13.3 H (9.5-12.0) sec INR 1.23 H (0.80-1.20) Sodium 134 L (140-148) mmol/L Potassium 5.3 H (3.6-5.2) mmol/L Chloride 101 (100-108) mmol/L Carbon Dioxide 24 (21-32) mmol/L Anion Gap 14.3 H (5.0-14.0) mmol/L BUN 71 H D (7-18) mg/dL Creatinine 2.1 H (0.6-1.0) mg/dL Est Cr Clr Drug Dosing 21.79 mL/min Estimated GFR (MDRD) 23 L (>60) Glucose 388 H (74-106) mg/dL Calcium 8.9 (8.5-10.1) mg/dL Meds: Medications Generic Name Dose Route Start Last Admin Trade Name Ingrid PRN Reason Stop Dose Admin Dextrose/Water 50 ml 03/24/21 00:59 50% Dextrose In Water 50 Ml Syringe IVPUSH ASDIRECTED PRN Hypoglycemia Glucagon 1 mg 03/24/21 00:59 Glucagon,Human Recombinant 1 Mg Vial IM ASDIRECTED PRN Hypoglycemia Sodium Chloride 1,000 mls @ 125 mls/hr 03/24/21 00:30 Normal Saline IV ASDIRECTED YOVANY Octreotide Acetate 500 mcg/ 500 mls @ 50 mls/hr 03/24/21 01:00 Sodium Chloride IV Q10H YOVANY 50 MCG/HR Pantoprazole Sodium 80 mg/ 100 mls @ 10 mls/hr 03/24/21 01:12 Sodium Chloride IV Q10H YOVANY Ceftriaxone Sodium 1 gm/ 50 mls @ 100 mls/hr 03/24/21 01:13 Sodium Chloride IV 03/24/21 01:42 ONETIME ONE Discontinued Medications Generic Name Dose Route Start Last Admin Trade Name Ingrid PRN Reason Stop Dose Admin Famotidine 20 mg 03/24/21 00:26 03/24/21 00:40 Famotidine 20 Mg/2 Ml Sdv IVPUSH 03/24/21 00:27 20 mg ONETIME ONE Administration Hydromorphone HCl 0.5 mg 03/24/21 00:52 03/24/21 01:14 Hydromorphone 0.5 Mg/0.5 Ml Syringe IVPUSH 03/24/21 00:53 0.5 mg ONETIME ONE Administration Lactated Ringer's 1,000 mls @ 1,000 mls/hr 03/24/21 00:16 03/24/21 00:23 Ringers, Lactated IV 03/24/21 01:15 1,000 mls/hr BOLUS ONE Administration Insulin Human Regular 10 unit 03/24/21 00:59 Insulin Regular, Human 100 Units/Ml 3 Ml Vial SUBCUT 03/24/21 01:00 ONETIME ONE Metoclopramide HCl 5 mg 03/24/21 00:26 03/24/21 00:41 Metoclopramide 10 Mg/2 Ml Sdv IVPUSH 03/24/21 00:27 5 mg ONETIME ONE Administration Pantoprazole Sodium 80 mg 03/24/21 00:18 03/24/21 00:28 Pantoprazole 40 Mg Vial IVPUSH 03/24/21 00:19 80 mg .BOLUS STA Administration Departure - Departure Time of Disposition: 02:00 Disposition: DC/Tfer to [facility] 02 Condition: Serious Clinical Impression: UGIB (upper gastrointestinal bleed), Hyperglycemia, Stage 4 chronic kidney disease Anemia Qualifiers: Anemia type: other cause Other causes of anemia: acute posthemorrhagic Qualified Code(s): D62 - Acute posthemorrhagic anemia - Discharge Information *PRESCRIPTION DRUG MONITORING PROGRAM REVIEWED*: Not Applicable *COPY OF PRESCRIPTION DRUG MONITORING REPORT IN PATIENT LEIGHA: Not Applicable Referrals: PCP,None [Primary Care Provider] - Forms: ED Department Discharge Sepsis Event Note (ED) - Evaluation Sepsis Screening Result: No Definite Risk - Focused Exam Vital Signs: Vital Signs Temp Pulse Resp BP Pulse Ox 03/24/21 01:20 80 13 111/44 L 95 03/24/21 00:09 36.6 C 78 12 90/34 L 96 03/24/21 00:06 36.6 C 78 12 90/34 L 96 - My Orders Last 24 Hours: My Active Orders 03/24/21 00:18 RED BLOOD CELLS LP [BBK] Stat TYPE AND SCREEN [BBK] Stat UA W/MICROSCOPIC [URIN] Stat 03/24/21 00:30 Sodium Chloride 0.9% [Normal Saline] 1,000 ml IV ASDIRECTED 03/24/21 00:40 CORONAVIRUS COVID-19 ROULA [MOLEC] Stat 03/24/21 00:58 Urinary Catheter Assessment [RC] ASDIRECTED 03/24/21 00:59 Dextrose 50% in Water 50 ml IVPUSH ASDIRECTED PRN Glucagon,Human Recombinant [GlucaGen] 1 mg IM ASDIRECTED PRN 03/24/21 01:00 [place] Catheter Insertion [Insert Urinary Catheter] [OM.PC] Q24H Octreotide [SandoSTATIN] 500 mcg Sodium Chloride 0.9% [Normal Saline] 497.5 ml IV Q10H 03/24/21 01:12 Pantoprazole [ProTONIX IV] 80 mg Sodium Chloride 0.9% [Normal Saline] 100 ml IV Q10H 03/24/21 01:13 cefTRIAXone [Rocephin] 1 gm Sodium Chloride 0.9% [Normal Saline] 50 ml IV ONETIME - Assessment/Plan Last 24 Hours: My Active Orders 03/24/21 00:18 RED BLOOD CELLS LP [BBK] Stat TYPE AND SCREEN [BBK] Stat UA W/MICROSCOPIC [URIN] Stat 03/24/21 00:30 Sodium Chloride 0.9% [Normal Saline] 1,000 ml IV ASDIRECTED 03/24/21 00:40 CORONAVIRUS COVID-19 ROULA [MOLEC] Stat 03/24/21 00:58 Urinary Catheter Assessment [RC] ASDIRECTED 03/24/21 00:59 Dextrose 50% in Water 50 ml IVPUSH ASDIRECTED PRN Glucagon,Human Recombinant [GlucaGen] 1 mg IM ASDIRECTED PRN 03/24/21 01:00 [place] Catheter Insertion [Insert Urinary Catheter] [OM.PC] Q24H Octreotide [SandoSTATIN] 500 mcg Sodium Chloride 0.9% [Normal Saline] 497.5 ml IV Q10H 03/24/21 01:12 Pantoprazole [ProTONIX IV] 80 mg Sodium Chloride 0.9% [Normal Saline] 100 ml IV Q10H 03/24/21 01:13 cefTRIAXone [Rocephin] 1 gm Sodium Chloride 0.9% [Normal Saline] 50 ml IV ONETIME
[2021-03-24] MEDS ORDERED: HYDROmorphone 0.5 MG/0.5 ML Syringe IVPUSH ONE (00:52)
[2021-03-24] MEDS ORDERED: 50% Dextrose in Water 50 ML Syringe IVPUSH PRN (00:59)
[2021-03-24] MEDS ORDERED: Insulin Regular, Human 100 Units/ML 3 ML Vial SUBCUT ONE (00:59)
[2021-03-24] MEDS ORDERED: Glucagon,Human Recombinant 1 MG Vial IM PRN (00:59)
[2021-03-24] MEDS ORDERED: Octreotide 500 MCG in Sodium Chloride 0.9% 497.5 ML IV SCH (01:00)
[2021-03-24] MEDS ORDERED: Pantoprazole 80 MG in Sodium Chloride 0.9% 100 ML IV SCH (01:12)
[2021-03-24] MEDS ORDERED: cefTRIAXone 1 GM in Sodium Chloride 0.9% 50 ML IV ONE (01:13)
[2021-03-24 03:07] VITALS: BP 126/57; PULSE 82
== END 2021-03-24 03:24 ==
LOC: JP.ED 23:48
DX: K92.2 Gastrointestinal hemorrhage, unspecified (principal); D62 Acute posthemorrhagic anemia; E11.65 Type 2 diabetes mellitus with hyperglycemia; N18.4 Chronic kidney disease, stage 4 (severe); I25.10 Atherosclerotic heart disease of native coronary artery without angina pectoris; Z88.1 Allergy status to other antibiotic agents; Z88.8 Allergy status to other drugs, medicaments and biological substances; Z79.82 Long term (current) use of aspirin; Z79.4 Long term (current) use of insulin; Z79.899 Other long term (current) drug therapy
CPT/HCPCS: 36415; 36430; 51702; 80048; 81001; 85027; 85610; 86850; 86900; 86901; 86920; 86922; 96365; 96367; 96368; 96375; 96376; 99285; C9113; J0696; J1170; J2354; J2765; J3490; J7030; J7040; J7120; P9016; U0002

== ENCOUNTER 2021-08-19 12:59 | Emergency (ER) | payer MEDICARE, BC ==
[2021-08-19 13:19] VITALS: BP 128/45; PULSE 69
== END 2021-08-19 15:50 | disposition home or self-care (01) ==
LOC: JP.ED 12:59
DX: D61.818 Other pancytopenia (principal); R07.89 Other chest pain; T47.1X5A Adverse effect of other antacids and anti-gastric-secretion drugs, initial encounter; I25.10 Atherosclerotic heart disease of native coronary artery without angina pectoris; I25.2 Old myocardial infarction; I12.9 Hypertensive chronic kidney disease with stage 1 through stage 4 chronic kidney disease, or unspecified chronic kidney disease; E11.22 Type 2 diabetes mellitus with diabetic chronic kidney disease; N18.30 Chronic kidney disease, stage 3 unspecified; E11.40 Type 2 diabetes mellitus with diabetic neuropathy, unspecified; E11.319 Type 2 diabetes mellitus with unspecified diabetic retinopathy without macular edema; E78.5 Hyperlipidemia, unspecified; E66.9 Obesity, unspecified; Z68.33 Body mass index [BMI] 33.0-33.9, adult; Z95.5 Presence of coronary angioplasty implant and graft; Z88.1 Allergy status to other antibiotic agents; Z88.8 Allergy status to other drugs, medicaments and biological substances; Z79.4 Long term (current) use of insulin; Z79.899 Other long term (current) drug therapy
CPT/HCPCS: 36415; 80053; 84484; 85025; 93005; 99285-25

== ENCOUNTER 2021-09-22 15:47 | Emergency (ER) | payer MEDICARE, BC ==
[2021-09-22] MEDS ORDERED: Furosemide 40 MG/4 ML VIAL IVPUSH ONE (18:33)
[2021-09-22] MEDS ORDERED: Sodium Chloride 0.9% 1,000 ML IV SCH (18:45)
[2021-09-22 18:47] LABS: CORONAVIRUS COVID-19 NAA NEGATIVE (NEGATIVE)
[2021-09-22 19:02] VITALS: BP 136/67; PULSE 85
== END 2021-09-22 19:40 | disposition other institution (70) ==
LOC: JP.ED 15:47
DX: I21.4 Non-ST elevation (NSTEMI) myocardial infarction (principal); E11.22 Type 2 diabetes mellitus with diabetic chronic kidney disease; I13.0 Hypertensive heart and chronic kidney disease with heart failure and stage 1 through stage 4 chronic kidney disease, or unspecified chronic kidney disease; N18.9 Chronic kidney disease, unspecified; I50.9 Heart failure, unspecified; D63.1 Anemia in chronic kidney disease; I25.10 Atherosclerotic heart disease of native coronary artery without angina pectoris; E78.00 Pure hypercholesterolemia, unspecified; I25.2 Old myocardial infarction; K21.9 Gastro-esophageal reflux disease without esophagitis; Z88.1 Allergy status to other antibiotic agents; Z88.8 Allergy status to other drugs, medicaments and biological substances; Z95.5 Presence of coronary angioplasty implant and graft; Z79.899 Other long term (current) drug therapy; Z79.4 Long term (current) use of insulin; Z20.822 Contact with and (suspected) exposure to COVID-19
CPT/HCPCS: 0241U; 36415; 71046; 71046-26; 80053; 84484; 85025; 93005; 96374; 99283; 99285-25; J1940; J7030

== ENCOUNTER 2021-10-12 18:37 | Emergency (ER) | payer MEDICARE, BC ==
[2021-10-12] MEDS ORDERED: Sodium Chloride 0.9% 10 ML Syringe FLUSH PRN (19:01)
[2021-10-12 19:50] LABS: CORONAVIRUS COVID-19 NAA NEGATIVE (NEGATIVE)
[2021-10-12] MEDS ORDERED: Vancomycin 1.5 GM in Sodium Chloride 0.9% 500 ML IV ONE (19:54)
[2021-10-12] MEDS ORDERED: Meropenem 1 GM in Sodium Chloride 0.9% 100 ML IV ONE (19:57)
[2021-10-12] MEDS ORDERED: Norepinephrine Bit/D5W Premix 4 MG in Premix Bag 1 BAG IV SCH (20:00)
[2021-10-12] MEDS ORDERED: Aspirin 81 MG Tab.Chew PO ONE (20:43)
[2021-10-12] MEDS ORDERED: Heparin Sodium 5,000 Units/ML Vial IVPUSH ONE (20:44)
[2021-10-12 20:45] VITALS: BP 111/63; PULSE 119
[2021-10-12] MEDS ORDERED: Heparin Sodium/D5W 25,000 UNITS/500 ML BAG IV SCH (20:45)
[2021-10-12] MEDS ORDERED: Metoclopramide 10 MG Tab PO ONE (21:13)
== END 2021-10-12 22:00 ==
LOC: JP.ED 18:37
DX: A41.9 Sepsis, unspecified organism (principal); N17.9 Acute kidney failure, unspecified; I13.0 Hypertensive heart and chronic kidney disease with heart failure and stage 1 through stage 4 chronic kidney disease, or unspecified chronic kidney disease; E11.22 Type 2 diabetes mellitus with diabetic chronic kidney disease; E11.40 Type 2 diabetes mellitus with diabetic neuropathy, unspecified; I85.00 Esophageal varices without bleeding; I50.21 Acute systolic (congestive) heart failure; N18.9 Chronic kidney disease, unspecified; D63.1 Anemia in chronic kidney disease; I25.10 Atherosclerotic heart disease of native coronary artery without angina pectoris; R77.8 Other specified abnormalities of plasma proteins; K76.6 Portal hypertension; E78.00 Pure hypercholesterolemia, unspecified; I25.2 Old myocardial infarction; Z95.5 Presence of coronary angioplasty implant and graft; Z88.1 Allergy status to other antibiotic agents; Z88.8 Allergy status to other drugs, medicaments and biological substances; Z79.4 Long term (current) use of insulin; Z79.899 Other long term (current) drug therapy; Z20.822 Contact with and (suspected) exposure to COVID-19
CPT/HCPCS: 0241U; 36415; 71045; 71045-26; 80048; 80076; 81001; 83605; 83735; 84443; 84484; 85025; 85379; 85610; 85730; 87040; 93005; 93010; 96365; 96375; 99285; 99285-25; A9270-GY; J2185; J3370; J3490; J7040